=== PATIENT | female | born 1995 | race Caucasian/White ===

== ENCOUNTER → 2016-02-12 | Outpatient (CLI) | payer OTHER ==
[~2016-02-12] MED LIST: ACET-1256 PO; DESM0.1T8 PO; GADAVIST IV PRN; HYD10 PO; IBUP-1050 PO; OMEP20TA PO; ONDA4TAB10 SL; OPTIRAY 320 IV PRN; OSEL75CA12 PO; OXYC1TAB3 PO; SULF800T23 PO; UNKNOWN ANTIBIOTIC PO
--- NOTE | 2016-02-12 13:30 | DIAGNOSTIC IMAGING REPORT ---
CT SCAN OF THE NECK WITH IV CONTRAST CLINICAL HISTORY: Palpable lump in the posterior neck at the base of the skull. COMPARISON STUDY: CT scan of cervical spine dated 09/29/2015. TECHNIQUE: Following the IV administration of 119 cc of Optiray 320, CT scan of the soft tissues of the neck was performed from the skull base to the upper chest. Images are reviewed in the axial, sagittal, and coronal planes. IV contrast was administered without complication. CT DOSE: 235.60 mGy.cm FINDINGS: Soft tissues: A cutaneous marker has been placed over the left posterior neck at the level of C2. There is no mass or fluid collection at this site. A tiny venous varix is incidentally noted deep to the marker. This was also seen on 09/29/[address] Pharynx: The nasopharynx, oropharynx, and laryngeal pharynx are normal in appearance. The pharyngeal airway is widely patent. There is no evidence of mass lesion. The vocal cords are symmetric. The parapharyngeal fat is well maintained. The prevertebral/retropharyngeal soft tissues are within normal limits. The epiglottis is normal. Lymphadenopathy: No cervical lymphadenopathy is seen Thyroid: Normal in size and attenuation. Salivary glands: The parotid and submandibular glands are within normal limits. Brain parenchyma: The visualized brain parenchyma at the skull base is normal in appearance. Vascular structures: The carotid arteries and jugular veins are widely patent. Skeletal structures: Imaged portions of the calvarium at the skull base are within normal limits. The cervical spine appears intact. Orbits: The bony orbits are intact. Orbital contents are within normal limits. Sinuses and mastoids: The visualized paranasal sinuses are clear. The mastoid air cells are well pneumatized. Lung apices: Visualized apical lung parenchyma is clear. IMPRESSION: 1. No acute abnormality. 2. There is no concerning mass lesion or fluid collection identified in the left posterior neck at the site of interest. A tiny venous varix is incidentally noted deep to the marker and may correspond to the finding of palpable concern. This is of doubtful significance and was also present on the 09/29/[address] Electronically signed by: Clayton Austin M.D. 02/12/2016 1:28 PM
--- NOTE | 2016-02-12 15:26 | DIAGNOSTIC IMAGING REPORT ---
MRI OF THE PITUITARY GLAND COMBO CLINICAL HISTORY: Follow-up pituitary nodule. COMPARISON STUDY: MRI of the pituitary gland dated 11/03/2012. TECHNIQUE: MRI of the pituitary gland is performed using various T1 and T2-weighted sequences in the axial, sagittal, and coronal planes. Dynamic post contrast imaging is performed coronally following the IV administration of 5 cc of Gadavist. FINDINGS: Again seen is a T1 hypointense, T2 hypointense, and hypoenhancing round nodule which deforms the superior margin of the pituitary gland. This is located just to the left of midline and measures 7 x 7 x 6 mm. This has modestly increased in size from 2013 when it measured 6 x 6 x 4.5 mm. The infundibulum appears midline. The remaining brain parenchyma is normal as visualized. IMPRESSION: There is been a slight increase in size of a round pituitary nodule as compared to the 2013 examination as detailed above. The T is remains most typical for a pituitary microadenoma. Electronically signed by: Clayton Austin M.D. 02/12/2016 3:24 PM
== END | disposition home or self-care (01) ==
LOC: C.MRI 12:58
PROVIDERS: ATTEND Internal Medicine
DX: R22.1 Localized swelling, mass and lump, neck (principal); D35.2 Benign neoplasm of pituitary gland

== ENCOUNTER 2016-02-25 22:03 | Emergency (ER) | payer OTHER ==
[~2016-02-25] VITALS: Ht 157.5 cm; Wt 47.0 kg
[~2016-02-25 22:03] MED LIST changes: -ACET-1256 PO; -DESM0.1T8 PO; -GADAVIST IV PRN; -HYD10 PO; -IBUP-1050 PO; -OMEP20TA PO; -OPTIRAY 320 IV PRN; -OSEL75CA12 PO; -OXYC1TAB3 PO; -SULF800T23 PO; -UNKNOWN ANTIBIOTIC PO
[2016-02-25 22:08] VITALS: BP 98/57; PULSE 105; TEMP 37.1; Ht 157.5 cm; Wt 47.0 kg
[2016-02-25 23:05] VITALS: O2SAT 99
--- NOTE | 2016-02-26 01:02 | EMERGENCY ROOM VISIT NOTE ---
ED Visit Note First contact with patient: 22:25 CHIEF COMPLAINT: Finger laceration HISTORY OF PRESENT ILLNESS: This 21 year old female patient presents to the emergency department after cutting the right third finger after punching a mirror just prior to arrival. The bleeding has stopped. Denies weakness or numbness of the finger. The patient has full range of motion of the fingers. The patient rates the pain as sharp and 7/10. The patient denies any other injuries. The patient's tetanus shot is reportedly up to date. REVIEW OF SYSTEMS: A 6 system review of systems was completed with positives and pertinent negatives listed in the HPI. ALLERGIES: Serotonin MEDICATIONS: See EMR PMH: No pertinent chronic medical disease SOCIAL HISTORY: Lives locally PHYSICAL EXAM: Vital Signs: Reviewed Nurse's notes, vital signs stable. GENERAL : White female, in no acute distress, well developed, well nourished. SKIN: There is a 1.0 cm long laceration on the posterior proximal aspect of the right third finger. The edges do not gape apart with traction. There is no foreign material in the wound and it looks clean. There is no significant bleeding. Extension and flexion of the finger is full and strong. Full range of motion of the wrist and other fingers. Capillary refill less than 2 seconds. Normal sensation to light and sharp touch. EMERGENCY DEPARTMENT COURSE: I examined the patient. She appears to have suffered a superficial laceration over her right third finger. The wound was cleansed with Betadine, and does not appear to need suture repair. The wound will do much better with Dermabond, and this was placed. The patient tolerated this well. She was given a metal splint to help prevent flexion. Wound care instructions were discussed, and she was otherwise invited back to the ER with any new, worsening, or concerning symptoms. Problem List Medical Problems: (1) Abdominal pain Status: Resolved (2) Contusion of left thumb Status: Resolved (3) Cough Status: Resolved (4) Epigastric pain Status: Resolved (5) Gastritis Status: Resolved (6) Headache Status: Chronic (7) Headache Status: Resolved (8) Headache Status: Resolved (9) Intractable migraine Status: Chronic (10) Intractable migraine Status: Chronic (11) Left shoulder pain Status: Resolved (12) Low back pain Status: Resolved (13) Microadenoma Status: Chronic (14) Migraine Status: Chronic (15) Migraine Status: Chronic (16) Migraine Status: Chronic (17) Migraine Status: Chronic (18) Migraine Status: Chronic (19) Post concussion syndrome Status: Chronic Current/Historical Medications No Active Prescriptions or Reported Meds Allergies Coded Allergies: Serotonin (Verified Allergy, Unknown, HIVES, UNCONTROLLED MOVEMENTS, ) Vital Signs Date Time Temp Pulse Resp B/P Pulse Ox O2 Delivery O2 Flow Rate FiO2 02/25/16 23:05 99 02/25/16 22:08 37.1 105 18 98/57 98 Room Air Departure Information Impression Primary Impression: Finger laceration Dispostion Home / Self-Care Condition GOOD Prescriptions No Active Prescriptions or Reported Meds Referrals Quin Montenegro M.D. No Doctor, Assigned (PCP) Forms HOME CARE DOCUMENTATION FORM, IMPORTANT VISIT INFORMATION Patient Instructions My [facility], ED Laceration Small Superf No Sutr Additional Instructions You were seen and evaluated today on an emergency basis only. This is not a substitute for, or an effort to provide, complete comprehensive medical care. It is not possible to recognize and treat all injuries or illnesses in a single emergency department visit. For this reason it is recommended that you followup with your primary care physician with any ongoing or persistent symptoms. Wear your splint for the next 3-4 days. Try not to get the Dermabond wet. This is a skin glue that will fall off by itself over the next few days. Try not to flex your finger as this may cause the glue to fall off prematurely. You are welcome to return to the emergency department anytime with new, worsening, or concerning symptoms.
[2016-06-10] MEDS ORDERED: HYD10 PO (16:05)
[2016-06-10] MEDS ORDERED: OXYC1TAB3 PO (18:16)
[2016-08-16] MEDS ORDERED: DESM0.1T8 PO (16:05)
[2016-08-16] MEDS ORDERED: HYD10 PO (16:05)
== END 2016-02-25 23:08 | disposition home or self-care (01) ==
LOC: C.EDB 22:04 → C.EDD 23:08
DX: S61.212A Laceration without foreign body of right middle finger without damage to nail, initial encounter (principal); W22.8XXA Striking against or struck by other objects, initial encounter

== ENCOUNTER 2016-05-01 14:58 | Emergency (ER) | payer OTHER ==
[~2016-05-01] VITALS: Ht 157.5 cm; Wt 47.1 kg
[2016-05-01 15:04] VITALS: TEMP 36.9; Ht 157.5 cm; Wt 47.1 kg
[2016-05-01] MEDS ORDERED: MoRPHine SULFATE 10 MG/ML CARP/VIAL IM STA (15:32)
[2016-05-01] MEDS ORDERED: ONDANSETRON 4MG OD TAB PO STA (15:32)
--- NOTE | 2016-05-01 16:04 | EMERGENCY ROOM VISIT NOTE ---
History Report prepared by Abelino: Suzanne Vital Under the Supervision of: Dr. Clayton Nguyen M.D. First contact with patient: 15:27 Chief Complaint: ABDOMINAL PAIN Stated Complaint: BAD PERIOD CRAMPS, HEADACHE, NAUSEA History of Present Illness The patient is a 21 year old female who presents to the Emergency Room with complaints of persistent lower abdominal cramping that began this morning. The pain radiates through her back. The patient states that she got her menstrual period today and her current pain feels like the worst menstrual cramps she has ever had. She was due for her period today. She does typically get cramps with her period, but never this bad. She also complains of nausea. Her vaginal bleeding has been normal otherwise. She has had more frequent bowel movements today. Denies vomiting, diarrhea, urinary symptoms or other complaints. The patient believes she has a history of an ovarian cyst. There is no chance of . She tried taking Tylenol today without relief. She is scheduled for surgery next week to remove a mass on her pituitary gland and cannot take NSAIDs. Source of History: patient Onset: this morning Position: abdomen (lower) Timing: other (persistent) Associated Symptoms: + nausea, No diarrhea, No urinary symptoms, No vomiting Review of Systems See HPI for pertinent positives & negatives. A total of 10 systems reviewed and were otherwise negative. Past Medical & Surgical Medical Problems: (1) Abdominal pain (2) Contusion of left thumb (3) Cough (4) Epigastric pain (5) Gastritis (6) Headache (7) Headache (8) Headache (9) Intractable migraine (10) Intractable migraine (11) Left shoulder pain (12) Low back pain (13) Microadenoma (14) Migraine (15) Migraine (16) Migraine (17) Migraine (18) Migraine (19) Post concussion syndrome (20) Tobacco Use Disorder Family History Diabetes mellitus Social History Smoking Status: Current Every Day Smoker Alcohol Use: none Drug Use: none Marital Status: single Housing Status: lives with family Occupation Status: employed Current/Historical Medications Scheduled PRN Oxycodone Ir (Roxicodone Ir), 1-2 TAB PO Q4H PRN for Pain Allergies Coded Allergies: Serotonin (Verified Allergy, Unknown, HIVES, UNCONTROLLED MOVEMENTS, ) Physical Exam Vital Signs Date Time Temp Pulse Resp B/P Pulse Ox O2 Delivery O2 Flow Rate FiO2 05/01/16 17:08 74 16 110/69 99 05/01/16 15:04 36.9 90 15 103/69 98 Room Air Physical Exam GENERAL: Patient is in no acute distress. HEENT: No acute trauma, normocephalic atraumatic, mucous membranes moist, no nasal congestion, no scleral icterus. NECK: No stridor, no adenopathy, no meningismus, trachea is midline. LUNGS: Clear to auscultation bilaterally, no wheeze, no rhonchi, breath sounds equal. HEART: Without murmurs gallops or rubs, regular rate and rhythm. ABDOMEN: Soft, mildly tender to the lower pelvis bilaterally, bowel sounds positive, no hernias, no peritonitis. EXTREMITIES: No cyanosis or edema, full range of motion of all the joints without pain or difficulty, no signs for acute trauma. NEUROLOGIC: Oriented x 3, no acute motor or sensory deficits, no focal weakness. SKIN: No rash, no jaundice, no diaphoresis. Medical Decision & Procedures Medications Administered Medications (Trade) Dose Ordered Sig/Alexia Route Start Time Stop Time Status Last Admin Dose Admin Morphine Sulfate (MoRPHine SULFATE INJ) 6 mg NOW STAT IM 05/01/16 15:32 05/01/16 15:34 DC 05/01/16 15:58 6 MG Ondansetron HCl (Zofran Odt) 4 mg NOW STAT PO 05/01/16 15:32 05/01/16 15:34 DC 05/01/16 15:58 4 MG ED Course 1528: The patient was evaluated in room A11B. A complete history and physical exam was performed. 1532: Ordered Zofran Odt 4 mg PO, Morphine Sulfate 6 mg IM. 1613: I reassessed the patient and updated her. 1650: Reevaluated the patient. She was feeling much better. Discussed results and discharge instructions: She verbalized understanding and agreement. The patient is ready for discharge. Medical Decision Differential includes but is not limited to severe menstrual cramping, ovarian cyst, intestinal colic, UTI. The patient presents with severe menstrual cramping. She has had some painful periods before but nothing to this extent. She has been using Tylenol without relief. She has some nausea but no vomiting was reported. She hasn't had urinary complaints. She is homosexual and thus is not concerned for . The patient cannot use any type NSAID since she is scheduled next week for surgery on her pituitary. I talked to the patient at length. Really, she just wants some pain control. She was given IM morphine and oral Zofran. She feels improved. She'll be discharged with a few oxycodone for pain. She can continue the Tylenol as well. If things are worsening, if she has fever, she should return back for reassessment. I did discuss an ultrasound of her uterus and ovaries, she would like to hold on this testing for now. [place] Drug Monitoring Program Search Results: patient reviewed within database, no issues identified Impression Primary Impression: Pelvic cramping Additional Impression: Vaginal bleeding Scribe Attestation The scribe's documentation has been prepared under my direction and personally reviewed by me in its entirety. I confirm that the note above accurately reflects all work, treatment, procedures, and medical decision making performed by me. Departure Information Dispostion Home / Self-Care Prescriptions Oxycodone Ir (Roxicodone Ir) 5 Mg Tab 1-2 TAB PO Q4H Y for Pain, #10 TAB Prov: Clayton Nguyen M.D. 05/01/16 Referrals Quin Montenegro M.D. (PCP) Patient Instructions My [facility] Additional Instructions tylenol for pain heat the belly may help oxy ir 1-2 tab every 4 hours for severe pain return if worsening as we discussed Problem Qualifiers
[2016-05-01] MEDS ORDERED: OXYC1TAB3 PO (16:57)
[2016-05-01 17:08] VITALS: BP 110/69; PULSE 74; O2SAT 99
[2016-06-10] MEDS ORDERED: HYD10 PO (16:05)
[2016-06-10] MEDS ORDERED: OXYC1TAB3 PO (18:16)
[2016-08-16] MEDS ORDERED: HYD10 PO (16:05)
[2016-08-16] MEDS ORDERED: DESM0.1T8 PO (16:05)
== END 2016-05-01 17:11 | disposition home or self-care (01) ==
LOC: C.EDB 14:59 → C.EDA 17:11
DX: N94.6 Dysmenorrhea, unspecified (principal); E23.6 Other disorders of pituitary gland; F17.200 Nicotine dependence, unspecified, uncomplicated; R11.0 Nausea

== ENCOUNTER 2016-05-26 18:55 | Emergency (ER) | payer OTHER ==
[~2016-05-26] VITALS: Ht 157.5 cm; Wt 47.8 kg
[~2016-05-26 18:55] MED LIST changes: -ONDA4TAB10 SL; +OXYC1TAB3 PO
[2016-05-26 18:58] VITALS: TEMP 36.8; Ht 157.5 cm; Wt 47.8 kg
[2016-05-26] MEDS ORDERED: DiphenhydrAMINE HCL 50 MG/ML VIAL IV STA (19:11)
[2016-05-26] MEDS ORDERED: KETOROLAC TROMETHAMINE 30 MG/ML VIAL IV STA (19:11)
[2016-05-26] MEDS ORDERED: SODIUM CHLORIDE 0.9% 1000ML 1,000 ML IV STA (19:11)
[2016-05-26] MEDS ORDERED: PROCHLORPERAZINE 5 MG/ML 2 ML VIAL IV STA (19:11)
--- NOTE | 2016-05-26 19:15 | EMERGENCY ROOM VISIT NOTE ---
History Report prepared by Abelino: Maco Schwarz Under the Supervision of: Dr. River Diop M.D. First contact with patient: 19:02 Chief Complaint: HEADACHE Stated Complaint: MIRGRAINE History of Present Illness The patient is a 21 year old female who presents to the Emergency Room with complaints of persistent migraines that she has been experiencing daily since May 06, 20 days prior to arrival. The patient states that she had a tumor removed from her anterior pituitary gland on May 06 and has the migraines daily every since. She notes that her migraine pain starts on the sides of her nose and radiates up into and across her forehead. She denies any neck stiffness or soreness at this time. The patient's surgery was done in [place]. Source of History: patient Onset: 20 days [employer] WORK[employer] Position: head Quality: other (Migraine Headache) Timing: other (Persistent) Review of Systems See HPI for pertinent positives & negatives. A total of 10 systems reviewed and were otherwise negative. Past Medical & Surgical Medical Problems: (1) Abdominal pain (2) Contusion of left thumb (3) Cough (4) Epigastric pain (5) Gastritis (6) Headache (7) Headache (8) Headache (9) Intractable migraine (10) Intractable migraine (11) Left shoulder pain (12) Low back pain (13) Microadenoma (14) Migraine (15) Migraine (16) Migraine (17) Migraine (18) Migraine (19) Post concussion syndrome (20) Tobacco Use Disorder Family History Diabetes mellitus Social History Smoking Status: Current Every Day Smoker Alcohol Use: none Drug Use: none Marital Status: single Housing Status: lives with family Occupation Status: employed Current/Historical Medications Scheduled [Unknown Antibiotic], 1 TAB PO UD Scheduled PRN Oxycodone Immediate Rel Tab (Roxicodone Ir), 1-2 TAB PO Q4H PRN for Severe Pain Oxycodone Ir (Roxicodone Ir), 1-2 TAB PO Q4H PRN for Pain Allergies Coded Allergies: Serotonin (Verified Allergy, Unknown, HIVES, UNCONTROLLED MOVEMENTS, ) Physical Exam Vital Signs Date Time Temp Pulse Resp B/P Pulse Ox O2 Delivery O2 Flow Rate FiO2 05/26/16 20:48 79 16 101/63 98 Room Air 05/26/16 19:27 95 16 97/60 99 Room Air 05/26/16 18:58 36.8 101 18 105/64 92 Room Air Physical Exam GENERAL: Patient is a healthy-appearing well-nourished. No evidence of meningitis encephalitis on exam. HEAD: Normocephalic atraumatic EYES: Ocular movements intact pupils equal and react to light OROPHARYNX mucous membranes are moist no exudates present no erythema or edema present NECK: Supple no nuchal rigidity. No evidence of meningitis encephalitis on exam CHEST: Good equal expansion LUNGS: Clear and equal to auscultation CARDIAC: Normal S1 and S2 ABDOMEN: Soft nontender no guarding BACK: No CVA tenderness EXTREMITIES: No pain upon palpation normal muscle strength in all groups no clubbing cyanosis or edema NEURO: Patient is following commands is answering questions appropriately. Alert and oriented x3 Cranial Nerves 2-12 grossly intact Medical Decision & Procedures Medications Administered Medications (Trade) Dose Ordered Sig/Alexia Route Start Time Stop Time Status Last Admin Dose Admin Sodium Chloride (Nss 1000ml) 1,000 ml @ 999 mls/hr Q1H1M STAT IV 05/26/16 19:11 05/26/16 20:11 DC 05/26/16 19:17 999 MLS/HR Hydromorphone HCl (Dilaudid Inj) 1 mg NOW STAT IV 05/26/16 19:21 05/26/16 19:22 DC 05/26/16 19:26 1 MG Ondansetron HCl (Zofran Inj) 4 mg NOW STAT IV 05/26/16 19:21 05/26/16 19:22 DC 05/26/16 19:25 4 MG Hydromorphone HCl (Dilaudid Inj) 1 mg NOW STAT IV 05/26/16 20:16 05/26/16 20:18 DC 05/26/16 20:33 1 MG Oxycodone HCl (Roxicodone Immediate Rel 5MG Home Pack) 1 homepack UD ONCE PO 05/26/16 20:30 05/26/16 20:31 DC 05/26/16 20:33 1 HOMEPACK ED Course 1900: Past medical records reviewed. The patient was evaluated in room C1. A complete history and physical examination was performed. 1910: Ordered Compazine 10 mg IV, Toradol 30 mg IV, Benadryl 50 mg IV, Sodium Chloride 1000 mL @ 999 mL/hr IV. 1920: Ordered Zofran 4 mg IV, Dilaudid 1 mg IV. 2016: Dilaudid 1 mg IV. 2019: Upon reexamination the patient is much improved. I discussed results and treatment plan with the patient. She verbalizes agreement and understanding. The patient is ready for discharge. Medical Decision Differential diagnosis: Etiologies such as migraine headache, meningitis, sinusitis, CO exposure, ICH, SAH, infection, tumor, headache, sinus thrombosis, arterial dissection, as well as others were entertained. This is a 21-year-old female who presents emergency department complaining of sinus pressure and pain. The patient has a follow-up with her neurosurgeon and [place] tomorrow. She has no evidence of meningitis or encephalitis here in the emergency department. Based on this finding I believe the patient's pain can be treated. The patient refused Toradol Compazine and Benadryl therefore she was given Dilaudid and Zofran. Repeat examination revealed improvement patient's symptoms. I stressed the need for follow-up with the patient's surgeon tomorrow. Patient was in agreement with the treatment plan. Impression Primary Impression: Headache Scribe Attestation The scribe's documentation has been prepared under my direction and personally reviewed by me in its entirety. I confirm that the note above accurately reflects all work, treatment, procedures, and medical decision making performed by me. Departure Information Dispostion Home / Self-Care Prescriptions Oxycodone Immediate Rel Tab (ROXICODONE IR) 5 Mg Tab 1-2 TAB PO Q4H Y for Severe Pain, #14 TAB Prov: River Diop MD 05/26/16 Referrals Quin Montenegro M.D. (PCP) Forms HOME CARE DOCUMENTATION FORM, IMPORTANT VISIT INFORMATION Patient Instructions My [facility] Additional Instructions Need follow up with Neurosurgeon tomorrow You have been examined and treated today on an emergency basis only. This is not a substitute for, or an effort to provide, complete comprehensive medical care. It is impossible to recognize and treat all injuries or illnesses in a single emergency department visit. It is therefore important that you follow up closely with Dr Montenegro. Call as soon as possible for an appointment. Thank you for your time and consideration. I look forward to speaking with you again soon. Please don't hesitate to call us if you have any questions. Problem Qualifiers Primary Impression: Headache Headache type: unspecified Headache chronicity pattern: acute headache Intractability: not intractable Qualified Codes: R51 - Headache
[2016-05-26] MEDS ORDERED: HYDROmorphone INJ 1 MG/ML SYR IV STA ×2 (19:21→20:16)
[2016-05-26] MEDS ORDERED: ONDANSETRON INJ 2 MG/ML 2 ML VIAL IV STA (19:21)
[2016-05-26] MEDS ORDERED: UNKNOWN ANTIBIOTIC PO (19:27)
[2016-05-26] MEDS ORDERED: OXYC1TAB3 PO (20:19)
[2016-05-26] MEDS ORDERED: OXYCODONE IR HOME PACK PO ONE (20:30)
[2016-05-26 20:48] VITALS: BP 101/63; PULSE 79; O2SAT 98
[2016-06-10] MEDS ORDERED: HYD10 PO (16:05)
[2016-06-10] MEDS ORDERED: OXYC1TAB3 PO (18:16)
[2016-08-16] MEDS ORDERED: DESM0.1T8 PO (16:05)
[2016-08-16] MEDS ORDERED: HYD10 PO (16:05)
== END 2016-05-26 20:50 | disposition home or self-care (01) ==
LOC: C.EDB 18:56 → C.EDC 20:50
DX: R51 Headache (principal); F17.200 Nicotine dependence, unspecified, uncomplicated; Z87.820 Personal history of traumatic brain injury; Z86.19 Personal history of other infectious and parasitic diseases; Z88.8 Allergy status to other drugs, medicaments and biological substances; Z83.3 Family history of diabetes mellitus

== ENCOUNTER 2016-06-07 14:39 | Emergency (ER) | payer OTHER ==
[~2016-06-07] VITALS: Ht 157.5 cm; Wt 48.4 kg
[~2016-06-07 14:39] MED LIST changes: +UNKNOWN ANTIBIOTIC PO
[2016-06-07 15:15] VITALS: TEMP 37; Ht 157.5 cm; Wt 48.4 kg
[2016-06-07] MEDS ORDERED: OMEP20TA PO (16:05)
[2016-06-07] MEDS ORDERED: MoRPHine SULFATE 4 MG/ML 1 ML CARP\\VIAL IV STA ×2 (16:14→17:56)
[2016-06-07] MEDS ORDERED: SODIUM CHLORIDE 0.9% 1000ML 1,000 ML IV STA (16:14)
[2016-06-07 16:29] LABS: BASO % 0.1 %; BASO ABS # 0.02 K/uL (0-0.2); COMPLETE YES; EOS % 0.1 %; HEMATOCRIT 38.3 % (37-47); IG% 0.3 %; LYMPH % 14.4 %; LYMPH ABS # 2.36 K/uL (1.2-3.4); MEAN CELL VOLUME 94.8 fL (80-100); MEAN CORPUSCULAR HEMOGLOBIN 31.9 pg (25-34); MEAN CORPUSCULAR HGB CONC 33.7 g/dl (32-36); MEAN PLATELET VOLUME 9.8 fL (7.4-10.4); MONO % 2.9 %; NEUT % 82.2 %; PLATELET COUNT 230 K/uL (130-400); RED BLOOD COUNT 4.04 M/uL (4.2-5.4); WHITE BLOOD COUNT 16.41 K/uL (4.8-10.8)
[2016-06-07 16:46] LABS: ALT/SGPT 60 U/L (12-78); AST/SGOT 17 U/L (15-37); BLOOD UREA NITROGEN 7 mg/dl (7-18); BUN/CREATININE RATIO 8.3 (10-20); CALCIUM 9.1 mg/dl (8.5-10.1); CARBON DIOXIDE 30 mmol/L (21-32); CHLORIDE 110 mmol/L (98-107); CREATININE 0.87 mg/dl (0.60-1.20); GLUCOSE 88 mg/dl (70-99); POTASSIUM 3.9 mmol/L (3.5-5.1); SODIUM 143 mmol/L (136-145)
[2016-06-07 16:49] LABS: ALKALINE PHOSPHATASE 86 U/L (45-117)
[2016-06-07 16:57] LABS: URINE APPEARANCE CLEAR (CLEAR); URINE BILIRUBIN NEG (NEG); URINE COLOR YELLOW; URINE EPITHELIAL CELL AUTO 20-30 /lpf (0-5); URINE NITRITE NEG (NEG); URINE PH 7.5 (4.5-7.5); URINE SPECIFIC GRAVITY 1.007 (1.000-1.030); UROBILINOGEN NEG (NEG); ZZUR CULT IF INDIC CLEAN CATCH YES
[2016-06-07 16:58] LABS: MANUAL MICROSCOPIC REQUIRED? NO; REVIEW REQ? NO
--- NOTE | 2016-06-07 17:27 | DIAGNOSTIC IMAGING REPORT ---
CHEST ONE VIEW PORTABLE CLINICAL HISTORY: Cough. COMPARISON STUDY: Chest radiograph December 26, 2015. FINDINGS: Lung volumes are normal. There is no pneumothorax or pleural effusion. Cardiac size is normal. Mediastinal contours are normal. There is no consolidation to suggest pneumonia. Pulmonary vascularity is normal. IMPRESSION: No acute cardiopulmonary findings. Electronically signed by: Selvin Montenegro M.D. 06/07/2016 5:26 PM Dictated Date/Time: 06/07/2016 5:25 PM
--- NOTE | 2016-06-07 17:36 | DIAGNOSTIC IMAGING REPORT ---
CT OF THE ABDOMEN AND PELVIS WITHOUT CONTRAST CLINICAL HISTORY: Left flank pain and hematuria. COMPARISON STUDY: CT of the abdomen and pelvis October 10, 2015 and abdominal series December 26, 2015. TECHNIQUE: Axial images of the abdomen and pelvis were obtained without IV contrast. Images were reviewed in the axial, sagittal, and coronal planes. FINDINGS: Lung bases are clear. There is slight prominence of both collecting systems without hydronephrosis. This could be related to bladder distention. No renal, ureteral or bladder calculi are present. Evaluation of the remainder of the abdomen and pelvis is suboptimal on this unenhanced exam. The liver, spleen, adrenal glands and pancreas are unremarkable. There is no evidence for a bowel obstruction. The appendix is partially disturbed likely normal. There is no ascites. There is no lymphadenopathy on this unenhanced exam. Skeletal structures are unremarkable. IMPRESSION: 1. No urinary calculi. Slight prominence of both collecting systems without hydronephrosis. This may be related to bladder distention. 2. No acute process within the abdomen or pelvis on unenhanced exam. Electronically signed by: Selvin Montenegro M.D. 06/07/2016 5:35 PM Dictated Date/Time: 06/07/2016 5:32 PM
[2016-06-07 17:45] LABS: URINE APPEARANCE CLEAR (CLEAR); URINE BILIRUBIN NEG (NEG); URINE COLOR YELLOW; URINE EPITHELIAL CELL AUTO >30 /lpf (0-5); URINE NITRITE NEG (NEG); URINE PH 7.5 (4.5-7.5); URINE SPECIFIC GRAVITY 1.003 (1.000-1.030); UROBILINOGEN NEG (NEG); ZZURINE CULT IF INDIC CATH NO
[2016-06-07 17:47] LABS: MANUAL MICROSCOPIC REQUIRED? NO; REVIEW REQ? YES
[2016-06-07] MEDS ORDERED: SULFAMETHOXAZOLE/TRIMETHOPRIM DS 800/160MG TAB PO STA (18:36)
[2016-06-07] MEDS ORDERED: SULF800T23 PO (18:51)
[2016-06-07 19:08] VITALS: BP 125/66; PULSE 80; O2SAT 99
--- NOTE | 2016-06-07 22:53 | EMERGENCY ROOM VISIT NOTE ---
History Report prepared by Abelino: Mariela Houser Under the Supervision of: Dr. Idris Mathis D.O. First contact with patient: 16:03 Chief Complaint: URINARY SYMPTOMS Stated Complaint: PEEING BLOOD - LOWER BACK APIN - MIGRAINE Nursing Triage Summary: Pt reports hematuria and left flank pain since yesterday Painful urination History of Present Illness The patient is a 21 year old female who presents to the Emergency Room with complaints of persistent hematuria starting 2 days [employer]. The patient states that along with her hematuria she has been experiencing back pain with it worse on the left than the right. The patient states that that pain radiates down into her hip and leg on the left side. The patient states that her hematuria seems like she has her menstrual period because when she wipes after urinating there is blood on the toilet paper. She states that her last menstrual period was normal and ended about 4 days ago. The patient states that she also has some pain once she is done urinating with her hematuria. The patient states that she had surgery on her pituitary on May 06 and was also diagnosed with diabetes insipidus on that day. She states that she has an incision from the surgery on her lower left side and states that she has been seen by her surgeon for a follow up. She states that also after her surgery she has had a headache. The patient states that she has a history of kidney stones in the past but states that with the kidney stones she usually has nausea and vomiting but has not experienced that recently. The patient states that she was seen at her PCP yesterday for a viral respiratory infection due to a recent productive cough with green phlegm, runny nose, and sore throat. She states she was prescribed a Zpac that she was going to start today. The patient denies any diarrhea, vaginal discharge, vaginal bleeding, fever, weakness or numbness in extremities. Source of History: patient Onset: 2 days [employer] SU[employer] Position: other (urinary) Timing: other (persistent) Associated Symptoms: + back pain (left worse than right, radiates down to buttock), + cough (green phlegm), + headache, + sorethroat, No fevers, No nausea , No numbness, No vomiting, No weakness Note: Associated symptoms: pain after urination, runny nose. Patient denies vaginal discharge and vaginal bleeding. Review of Systems Pt denies change in vision, fevers, chest pain, shortness of breath, nausea, vomiting, diarrhea, and melena. Past Medical & Surgical Medical Problems: (1) Abdominal pain (2) Contusion of left thumb (3) Cough (4) Epigastric pain (5) Gastritis (6) Headache (7) Headache (8) Headache (9) Intractable migraine (10) Intractable migraine (11) Left shoulder pain (12) Low back pain (13) Microadenoma (14) Migraine (15) Migraine (16) Migraine (17) Migraine (18) Migraine (19) Post concussion syndrome (20) Tobacco Use Disorder Family History Diabetes mellitus Social History Smoking Status: Current Every Day Smoker Alcohol Use: none Drug Use: none Marital Status: single Housing Status: lives with family Occupation Status: employed Current/Historical Medications Scheduled Desmopressin Acetate (Desmopressin Acetate), 0.1 MG PO Q12 Hydrocortisone (Cortef), 20 MG PO QAM Hydrocortisone (Cortef), 10 MG PO QPM Omeprazole (Omeprazole), 20 MG PO DAILY Sulfamethoxazole-Trimethoprim (Bactrim Ds 800MG/160MG), 1 TAB PO BID Allergies Coded Allergies: Ketorolac Tromethamine (Unverified Allergy, Unknown, SEIZURE, 06/07/16) Prochlorperazine (Unverified Allergy, Unknown, SEIZURE, 06/07/16) Serotonin (Verified Allergy, Unknown, HIVES, UNCONTROLLED MOVEMENTS, ) Tramadol (Unverified Allergy, Unknown, SEIZURE, 06/07/16) Physical Exam Vital Signs Date Time Temp Pulse Resp B/P Pulse Ox O2 Delivery O2 Flow Rate FiO2 06/07/16 19:08 80 16 125/66 99 06/07/16 16:28 61 16 113/62 100 Room Air 06/07/16 15:15 37.0 81 18 93/57 99 Room Air Physical Exam GENERAL: Sitting up in bed, alert, well appearing, well nourished, no distress, non-toxic EYE EXAM: normal conjunctiva OROPHARYNX: no exudate, no erythema, lips, buccal mucosa, and tongue normal and mucous membranes are moist NECK: supple, no nuchal rigidity, no adenopathy, non-tender LUNGS: Clear to auscultation. Normal chest wall mechanics HEART: no murmurs, S1 normal and S2 normal ABDOMEN: Linear incision left lower quadrant just medial to ASIS. Minimal tenderness around the incision site. No rebound or guarding. positive bowel sounds BACK: mild acute produceable tenderness in the left flank tracking down to left buttock. SKIN: Dry and intact UPPER EXTREMITIES: upper extremities are grossly normal. LOWER EXTREMITIES: No pitting edema. NEURO EXAM: Cranial nerves II-12 grossly intact, no gross weakness of the upper or lower extremities Medical Decision & Procedures ER Provider Diagnostic Interpretation: Radiology results as stated below per my review and the radiologist's interpretation: XRAY:Chest: A one view study was reviewed, no fracture was seen. CHEST ONE VIEW PORTABLE CLINICAL HISTORY: Cough. COMPARISON STUDY: Chest radiograph December 26, 2015. FINDINGS: Lung volumes are normal. There is no pneumothorax or pleural effusion. Cardiac size is normal. Mediastinal contours are normal. There is no consolidation to suggest pneumonia. Pulmonary vascularity is normal. IMPRESSION: No acute cardiopulmonary findings. Electronically signed by: Selvin Montenegro M.D. 06/07/2016 5:26 PM Dictated Date/Time: 06/07/2016 5:[address]:Per my review, radiologist interpretation. CT OF THE ABDOMEN AND PELVIS WITHOUT CONTRAST CLINICAL HISTORY: Left flank pain and hematuria. COMPARISON STUDY: CT of the abdomen and pelvis October 10, 2015 and abdominal series December 26, 2015. TECHNIQUE: Axial images of the abdomen and pelvis were obtained without IV contrast. Images were reviewed in the axial, sagittal, and coronal planes. FINDINGS: Lung bases are clear. There is slight prominence of both collecting systems without hydronephrosis. This could be related to bladder distention. No renal, ureteral or bladder calculi are present. Evaluation of the remainder of the abdomen and pelvis is suboptimal on this unenhanced exam. The liver, spleen, adrenal glands and pancreas are unremarkable. There is no evidence for a bowel obstruction. The appendix is partially disturbed likely normal. There is no ascites. There is no lymphadenopathy on this unenhanced exam. Skeletal structures are unremarkable. IMPRESSION: 1. No urinary calculi. Slight prominence of both collecting systems without hydronephrosis. This may be related to bladder distention. 2. No acute process within the abdomen or pelvis on unenhanced exam. Electronically signed by: Selvin Montenegro M.D. 06/07/2016 5:35 PM Dictated Date/Time: 06/07/2016 5:32 PM Laboratory Results 06/07/16 16:18 Red Blood Count 4.04, Mean Corpuscular Volume 94.8, Mean Corpuscular Hemoglobin 31.9, Mean Corpuscular Hemoglobin Concent 33.7, Mean Platelet Volume 9.8, Neutrophils (%) (Auto) 82.2, Lymphocytes (%) (Auto) 14.4, Monocytes (%) (Auto) 2.9, Eosinophils (%) (Auto) 0.1, Basophils (%) (Auto) 0.1, Neutrophils # (Auto) 13.49, Lymphocytes # (Auto) 2.36, Monocytes # (Auto) 0.47, Eosinophils # (Auto) 0.02, Basophils # (Auto) 0.02 06/07/16 16:18 Test 06/07/16 16:00 06/07/16 16:18 06/07/16 17:20 Urine Test NEG (NEG) White Blood Count 16.41 K/uL (4.8-10.8) Red Blood Count 4.04 M/uL (4.2-5.4) Hemoglobin 12.9 g/dL (12.0-16.0) Hematocrit 38.3 % (37-47) Mean Corpuscular Volume 94.8 fL (80-100) Mean Corpuscular Hemoglobin 31.9 pg (25-34) Mean Corpuscular Hemoglobin Concent 33.7 g/dl (32-36) Platelet Count 230 K/uL (130-400) Mean Platelet Volume 9.8 fL (7.4-10.4) Neutrophils (%) (Auto) 82.2 % Lymphocytes (%) (Auto) 14.4 % Monocytes (%) (Auto) 2.9 % Eosinophils (%) (Auto) 0.1 % Basophils (%) (Auto) 0.1 % Neutrophils # (Auto) 13.49 K/uL (1.4-6.5) Lymphocytes # (Auto) 2.36 K/uL (1.2-3.4) Monocytes # (Auto) 0.47 K/uL (0.11-0.59) Eosinophils # (Auto) 0.02 K/uL (0-0.5) Basophils # (Auto) 0.02 K/uL (0-0.2) RDW Standard Deviation 46.1 fL (36.4-46.3) RDW Coefficient of Variation 13.1 % (11.5-14.5) Immature Granulocyte % (Auto) 0.3 % Immature Granulocyte # (Auto) 0.05 K/uL (0.00-0.02) Anion Gap 3.0 mmol/L (3-11) Est Creatinine Clear Calc Drug Dose 78.8 ml/min Estimated GFR () 111.1 Estimated GFR (Non- 95.9 BUN/Creatinine Ratio 8.3 (10-20) Calcium Level 9.1 mg/dl (8.5-10.1) Total Bilirubin 0.2 mg/dl (0.2-1) Direct Bilirubin < 0.1 mg/dl (0-0.2) Aspartate Amino Transf (AST/SGOT) 17 U/L (15-37) Alanine Aminotransferase (ALT/SGPT) 60 U/L (12-78) Alkaline Phosphatase 86 U/L (45-117) Total Protein 7.7 gm/dl (6.4-8.2) Albumin 4.1 gm/dl (3.4-5.0) Lipase 168 U/L (73-393) Urine Color YELLOW Urine Appearance CLEAR (CLEAR) Urine pH 7.5 (4.5-7.5) Urine Specific Hilbert 1.003 (1.000-1.030) Urine Protein NEG (NEG) Urine Glucose (UA) NEG (NEG) Urine Ketones NEG (NEG) Urine Occult Blood NEG (NEG) Urine Nitrite NEG (NEG) Urine Bilirubin NEG (NEG) Urine Urobilinogen NEG (NEG) Urine Leukocyte Esterase MODERATE (NEG) Urine WBC (Auto) 5-10 /hpf (0-5) Urine RBC (Auto) 0-4 /hpf (0-4) Urine Hyaline Casts (Auto) 1-5 /lpf (0-5) Urine Epithelial Cells (Auto) >30 /lpf (0-5) Urine Bacteria (Auto) NEG (NEG) Urine Renal Epithelial Cells 0-5 /lpf (0-5) Laboratory results per my review. Medications Administered Medications (Trade) Dose Ordered Sig/Alexia Route Start Time Stop Time Status Last Admin Dose Admin Sodium Chloride (Nss 1000ml) 1,000 ml @ 999 mls/hr Q1H1M STAT IV 06/07/16 16:14 06/07/16 17:14 DC 06/07/16 16:31 999 MLS/HR Morphine Sulfate (MoRPHine SULFATE INJ) 4 mg NOW STAT IV 06/07/16 16:14 06/07/16 16:16 DC 06/07/16 16:31 4 MG Morphine Sulfate (MoRPHine SULFATE INJ) 4 mg NOW STAT IV 06/07/16 17:56 06/07/16 17:57 DC 06/07/16 18:03 4 MG Trimethoprim/ Sulfamethoxazole (Septra Ds 800/ 160MG Tab) 1 tab NOW STAT PO 06/07/16 18:36 06/07/16 18:37 DC 06/07/16 18:48 1 TAB ED Course ED COURSE: Vital signs were reviewed and showed Hypotensive The patients medical record was reviewed. The patient was discharge with acute kidney injury on May 21. She also has medical history of multiple drug resistant organisms UTI. The above diagnostic studies were performed and reviewed. ED treatments and interventions as stated above. 1609: The patient was evaluated in room C12B. A complete history and physical examination was performed. 1614: Ordered Morphine Sulfate 4 mg IV, Sodium Chloride 1,000 ml @ 999 mls/hr IV. 1715: I reevaluated the patient and she was resting comfortably. 1756: Ordered Morphine sulfat 4 mg IV. 1836: Ordered Trimethoprim/Sulfamethoxazole 1 tab PO. 1850: Upon reevaluation, the patient is resting comfortably.I discussed my findings with the patient and she understands and agrees with the treatment plan. The patient declined to have pelvic exam today. Based on the patients age, coexisting illnesses, exam and lab findings the decision to treat as an inpatientoutpatient was made. The patient remained stable while under my care. The patient appeared well at the time of discharge. Medical Decision Differential diagnoses includes but is not limited to gastritis, peptic ulcer disease, GERD, gallbladder disease, pancreatitis, small bowel obstruction, acute coronary syndrome, pericarditis, ischemic bowel, irritable bowel disease, irritable bowel syndrome, appendicitis, diverticulitis, malignancy, hernia, urinary tract infection, torsion, [/ectopic (if female)], perforation, trauma, infectious. Patient is a 21-year-old female who presents the ER for blood in the urine associated with left flank pain. Labs show a leukocytosis of 16,000, BMP along with LFTs, bilirubin and lipase was negative. UA shows moderate esterase and white cells. Crit is [address] was negative[address] of the abdomen and pelvis was negative. Chest x-ray was unremarkable. Patient was given 2 doses of morphine. Her committed pelvic but she declined. I do believe her pain is likely muscle skeletal as it is reproducible. Difficult to ascertain if her urine is contaminated or infected. Will treat with the leukocytosis although this is likely secondary to the upper respiratory symptoms that she has been having. Discussed with Pt concerning signs and symptoms to watch out for. Pt was instructed to follow up with their PCP and discussed with the patient their option to return to the ED at anytime for persistent or worsening symptoms. The appropriate anticipatory guidance and out- patient management, including indications for return to the emergency department , were explained at length to the patient and understood. Impression Primary Impression: UTI (urinary tract infection) Additional Impressions: Musculoskeletal back pain Leukocytosis Scribe Attestation The scribe's documentation has been prepared under my direction and personally reviewed by me in its entirety. I confirm that the note above accurately reflects all work, treatment, procedures, and medical decision making performed by me. Departure Information Dispostion Home / Self-Care Prescriptions Sulfamethoxazole-Trimethoprim (Bactrim Ds 800MG/160MG) 1 Tab Tab 1 TAB PO BID, #14 TAB Prov: Idris Mathis, DO 06/07/16 Referrals Nancy Linn D.O. (PCP) Forms HOME CARE DOCUMENTATION FORM, IMPORTANT VISIT INFORMATION Patient Instructions My [facility] Additional Instructions Please follow up with your primary care doctor with in the next 24 hours. Any worsening of your symptoms, please return to the ED immediately. This includes fevers greater than 100.4, persistent nausea vomiting, worsening pain, or any other concerning signs or symptoms from your standpoint. Please take antibiotic as prescribed Problem Qualifiers Primary Impression: UTI (urinary tract infection) Urinary tract infection type: acute cystitis Hematuria presence: with hematuria Qualified Codes: N30.01 - Acute cystitis with hematuria Additional Impressions: Leukocytosis Leukocytosis type: unspecified Qualified Codes: D72.829 - Elevated white blood cell count, unspecified
[2016-06-10] MEDS ORDERED: HYD10 PO (16:05)
[2016-06-10] MEDS ORDERED: OXYC1TAB3 PO (18:16)
[2016-08-16] MEDS ORDERED: DESM0.1T8 PO (16:05)
[2016-08-16] MEDS ORDERED: HYD10 PO (16:05)
== END 2016-06-07 19:09 | disposition home or self-care (01) ==
LOC: C.EDB 14:41 → C.EDC 19:09
DX: N39.0 Urinary tract infection, site not specified (principal); M54.9 Dorsalgia, unspecified; D72.829 Elevated white blood cell count, unspecified; F17.200 Nicotine dependence, unspecified, uncomplicated; Z87.820 Personal history of traumatic brain injury; Z87.828 Personal history of other (healed) physical injury and trauma; Z79.899 Other long term (current) drug therapy; Z83.3 Family history of diabetes mellitus; Z88.8 Allergy status to other drugs, medicaments and biological substances

== ENCOUNTER 2016-07-18 21:01 | Emergency (ER) | payer OTHER ==
[~2016-07-18] VITALS: Ht 157.5 cm; Wt 49.9 kg
[~2016-07-18 21:01] MED LIST changes: +HYD10 PO; +OMEP20TA PO; -OXYC1TAB3 PO; -UNKNOWN ANTIBIOTIC PO
[2016-07-18 21:03] VITALS: TEMP 37.1; Ht 157.5 cm; Wt 49.9 kg
[2016-07-18] MEDS ORDERED: OXYC1TAB3 PO (21:14)
[2016-07-18] MEDS ORDERED: MoRPHine SULFATE 4 MG/ML 1 ML CARP\\VIAL IV STA (21:26)
[2016-07-18] MEDS ORDERED: METOCLOPRAMIDE HCL INJ 5 MG/ML 2 ML VIAL IV STA (21:26)
[2016-07-18] MEDS ORDERED: DiphenhydrAMINE HCL 50 MG/ML VIAL IV STA (21:26)
[2016-07-18] MEDS ORDERED: SODIUM CHLORIDE 0.9% 1000ML 1,000 ML IV STA (21:26)
[2016-07-18] MEDS ORDERED: SODIUM CHLORIDE 0.9% 500ML 500 ML IV STA (21:26)
[2016-07-18 21:58] LABS: URINE APPEARANCE CLEAR (CLEAR); URINE BILIRUBIN NEG (NEG); URINE COLOR YELLOW; URINE NITRITE NEG (NEG); URINE SPECIFIC GRAVITY 1.013 (1.000-1.030); UROBILINOGEN NEG (NEG)
[2016-07-18 22:02] VITALS: O2SAT 99
[2016-07-18 22:05] LABS: MANUAL MICROSCOPIC REQUIRED? NO; REVIEW REQ? NO
[2016-07-18 22:13] LABS: BASO % 0.2 %; BASO ABS # 0.02 K/uL (0-0.2); COMPLETE YES; EOS % 0.5 %; HEMATOCRIT 34.8 % (37-47); IG% 0.2 %; LYMPH % 25.5 %; LYMPH ABS # 3.28 K/uL (1.2-3.4); MEAN CELL VOLUME 91.8 fL (80-100); MEAN CORPUSCULAR HEMOGLOBIN 31.7 pg (25-34); MEAN CORPUSCULAR HGB CONC 34.5 g/dl (32-36); MEAN PLATELET VOLUME 9.6 fL (7.4-10.4); MONO % 5.3 %; NEUT % 68.3 %; PLATELET COUNT 212 K/uL (130-400); RED BLOOD COUNT 3.79 M/uL (4.2-5.4); WHITE BLOOD COUNT 12.87 K/uL (4.8-10.8)
[2016-07-18 22:36] LABS: BUN/CREATININE RATIO 9.8 (10-20); CALCIUM 8.7 mg/dl (8.5-10.1); CREATININE 0.84 mg/dl (0.60-1.20); POTASSIUM 3.6 mmol/L (3.5-5.1)
[2016-07-18 22:41] LABS: PREG INTERNAL NEGATIVE QC NEG CLEAR BACKGROUND; PREG INTERNAL POSITIVE QC POS CONTROL LINE
[2016-07-19 00:43] VITALS: BP 105/52; PULSE 65; O2SAT 98
[2016-07-19] MEDS ORDERED: OXYCODONE IR HOME PACK PO ONE (00:45)
--- NOTE | 2016-07-19 05:29 | EMERGENCY ROOM VISIT NOTE ---
History First contact with patient: 21:22 Chief Complaint: FLANK PAIN Stated Complaint: POSSIBLE KIDNEY STONE, MIGRAINE History of Present Illness The patient is a 21 year old female who presents to the Emergency Room with complaints of left flank suprapubic pain for the past day who has a history of stones and symptoms feel similar. She also has a history of ovarian cysts. She also complains of a typical headache for herself. She describes the pain as aching, ranging in severity 5 out of 10. Nothing makes it better or worse. Patient denies chest pain, dyspnea, sudden onset of headache, vision problems, numbness, tingling, weakness, fever, chills, vomiting, diarrhea, urinary symptoms, vaginal itching or discharge. She does not feel at risk for STI's. Review of Systems See HPI for pertinent positives & negatives. A total of 10 systems reviewed and were otherwise negative. Past Medical/Surgical History Medical Problems: (1) Abdominal pain (2) Contusion of left thumb (3) Cough (4) Epigastric pain (5) Gastritis (6) Headache (7) Headache (8) Headache (9) Intractable migraine (10) Intractable migraine (11) Left shoulder pain (12) Low back pain (13) Microadenoma (14) Migraine (15) Migraine (16) Migraine (17) Migraine (18) Migraine (19) Post concussion syndrome (20) Tobacco Use Disorder Family History Diabetes mellitus Social History Smoking Status: Current Every Day Smoker Alcohol Use: none Drug Use: none Marital Status: single Housing Status: lives with family Occupation Status: employed Current/Historical Medications Scheduled Desmopressin Acetate (Desmopressin Acetate), 0.1 MG PO Q12 Hydrocortisone (Cortef), 10 MG PO BID Omeprazole (Omeprazole), 20 MG PO DAILY Scheduled PRN Oxycodone Ir (Roxicodone Ir), 1 TAB PO Q4H PRN for BREAKTHROUGH PAIN. Allergies Coded Allergies: Ketorolac Tromethamine (Unverified Allergy, Unknown, SEIZURE, 06/07/16) Prochlorperazine (Unverified Allergy, Unknown, SEIZURE, 06/07/16) Serotonin (Verified Allergy, Unknown, HIVES, UNCONTROLLED MOVEMENTS, ) Tramadol (Unverified Allergy, Unknown, SEIZURE, 06/07/16) Physical Exam Vital Signs Date Time Temp Pulse Resp B/P (MAP) Pulse Ox O2 Delivery O2 Flow Rate FiO2 6/9/17 00:43 65 16 105/52 98 Room Air 07/18/16 23:38 61 16 100/53 97 Room Air 07/18/16 22:02 99 Room Air 07/18/16 21:03 37.1 79 18 99 Room Air Pain Rating (0-10): 5.0 Physical Exam VITALS: Vitals are noted on the nurse's note and reviewed by myself. Vital signs stable. GENERAL: Pleasant female watching TV with her mother, in no acute distress, nondiaphoretic, well-developed well-nourished. SKIN: The skin was without rashes, erythema, edema, or bruising. There is no tenting of the skin. Capillary reflex less than 2 seconds. HEAD: Normocephalic atraumatic. EARS: External auditory canals clear, tympanic membranes pearly cameron without erythema or effusion bilaterally. EYES: Pupils equal round and reactive to light and accommodation. Conjunctivae without injection, sclerae without icterus. Extraocular movements intact. NOSE: Patent, turbinates without inflammation or discharge. No sinus tenderness. MOUTH: Mucous membranes moist. Pharynx without erythema or exudate. Uvula midline. Airway patent. Tongue does not deviate. NECK: Supple without nuchal rigidity. No lymphadenopathy. No thyromegaly. Cervical spine is nontender. No JVD. HEART: Regular rate and rhythm without murmurs gallops or rubs. LUNGS: Clear to auscultation bilaterally without wheezes, rales or rhonchi. No dullness to percussion. No retractions or accessory muscle use. ABDOMEN: Positive bowel sounds x 4. Normal tympanic percussion. Soft, tender to palpation left lower suprapubic area, no CVA tenderness, without masses or organomegaly. Moise sign negative. No guarding or rebound tenderness. MUSCULOSKELETAL: No muscle atrophy, erythema, or edema noted. NEURO: Patient was alert and oriented to person place and time. Normal sensation to light and sharp touch. No focal neurological deficits. Medical Decision & Procedures Laboratory Results 07/18/16 21:58 Red Blood Count 3.79, Mean Corpuscular Volume 91.8, Mean Corpuscular Hemoglobin 31.7, Mean Corpuscular Hemoglobin Concent 34.5, Mean Platelet Volume 9.6, Neutrophils (%) (Auto) 68.3, Lymphocytes (%) (Auto) 25.5, Monocytes (%) (Auto) 5.3, Eosinophils (%) (Auto) 0.5, Basophils (%) (Auto) 0.2, Neutrophils # (Auto) 8.79, Lymphocytes # (Auto) 3.28, Monocytes # (Auto) 0.68, Eosinophils # (Auto) 0.07, Basophils # (Auto) 0.02 07/18/16 21:58 Test 07/18/16 21:15 07/18/16 21:58 Urine Color YELLOW Urine Appearance CLEAR (CLEAR) Urine pH 7.0 (4.5-7.5) Urine Specific [place] 1.013 (1.000-1.030) Urine Protein NEG (NEG) Urine Glucose (UA) NEG (NEG) Urine Ketones NEG (NEG) Urine Occult Blood NEG (NEG) Urine Nitrite NEG (NEG) Urine Bilirubin NEG (NEG) Urine Urobilinogen NEG (NEG) Urine Leukocyte Esterase NEG (NEG) White Blood Count 12.87 K/uL (4.8-10.8) Red Blood Count 3.79 M/uL (4.2-5.4) Hemoglobin 12.0 g/dL (12.0-16.0) Hematocrit 34.8 % (37-47) Mean Corpuscular Volume 91.8 fL (80-100) Mean Corpuscular Hemoglobin 31.7 pg (25-34) Mean Corpuscular Hemoglobin Concent 34.5 g/dl (32-36) Platelet Count 212 K/uL (130-400) Mean Platelet Volume 9.6 fL (7.4-10.4) Neutrophils (%) (Auto) 68.3 % Lymphocytes (%) (Auto) 25.5 % Monocytes (%) (Auto) 5.3 % Eosinophils (%) (Auto) 0.5 % Basophils (%) (Auto) 0.2 % Neutrophils # (Auto) 8.79 K/uL (1.4-6.5) Lymphocytes # (Auto) 3.28 K/uL (1.2-3.4) Monocytes # (Auto) 0.68 K/uL (0.11-0.59) Eosinophils # (Auto) 0.07 K/uL (0-0.5) Basophils # (Auto) 0.02 K/uL (0-0.2) RDW Standard Deviation 41.9 fL (36.4-46.3) RDW Coefficient of Variation 12.4 % (11.5-14.5) Immature Granulocyte % (Auto) 0.2 % Immature Granulocyte # (Auto) 0.03 K/uL (0.00-0.02) Anion Gap 8.0 mmol/L (3-11) Est Creatinine Clear Calc Drug Dose 84.2 ml/min Estimated GFR () 116.0 Estimated GFR (Non- 100.1 BUN/Creatinine Ratio 9.8 (10-20) Calcium Level 8.7 mg/dl (8.5-10.1) Total Bilirubin 0.3 mg/dl (0.2-1) Direct Bilirubin 0.1 mg/dl (0-0.2) Aspartate Amino Transf (AST/SGOT) 21 U/L (15-37) Alanine Aminotransferase (ALT/SGPT) 41 U/L (12-78) Alkaline Phosphatase 67 U/L (45-117) Total Protein 7.3 gm/dl (6.4-8.2) Albumin 3.9 gm/dl (3.4-5.0) Human Chorionic Gonadotropin, Qual NEG (NEG) Medications Administered Medications (Trade) Dose Ordered Sig/Alexia Route Start Time Stop Time Status Last Admin Dose Admin Metoclopramide HCl (Reglan Inj) 10 mg NOW STAT IV 07/18/16 21:26 07/18/16 21:28 FL 07/18/16 22:23 10 MG Diphenhydramine HCl (Benadryl Inj) 25 mg NOW STAT IV 07/18/16 21:26 07/18/16 21:28 FL 07/18/16 22:23 25 MG Morphine Sulfate (MoRPHine SULFATE INJ) 4 mg NOW STAT IV 07/18/16 21:26 07/18/16 21:28 FL 07/18/16 22:24 4 MG Sodium Chloride 1,000 ml @ 125 mls/hr Q8H STAT IV 07/18/16 21:26 07/19/16 01:41 FL 07/18/16 21:26 125 MLS/HR Sodium Chloride 500 ml @ 999 mls/hr Q31M STAT IV 07/18/16 21:26 07/18/16 21:56 DC 07/18/16 22:03 999 MLS/HR Oxycodone HCl (Roxicodone Immediate Rel 5MG Home Pack) 1 homepack UD ONCE PO 07/19/16 00:45 07/19/16 00:46 DC 07/19/16 00:44 1 HOMEPACK ED Course Prior records/ancillary studies reviewed. Triage Nursing notes reviewed. Additional history obtained from family. The patient's history was concerning for abdominal pain. Differential diagnosis: Etiologies such as ovarian cyst, drug-seeking behavior, appendicitis, diverticulitis, PUD, biliary pathology, UTI, pancreatitis, obstruction, mesenteric ischemia, aortic pathology, infections, inflammatory bowel disease, renal colic, as well as others were entertained. Physical examination findings: As above. ER treatment provided: Morphine On reassessment the patient felt better. Diagnostics interpreted by me: The labs revealed leukocytosis which appears chronic in nature. Patient was advised to follow-up family care for this. Negative hCG. Negative urine Imaging studies: Ultrasound concerning for left ovarian cyst per radiology Exam and history seem consistent with left ovarian cyst. No signs of kidney stone. Negative urine. She is advised follow-up with OB in a few days and family care for her chronic leukocytosis. She is advised to return to the ER immediately for fevers, severe pain, vomiting, worsening signs or symptoms or as needed. Patient did not have acute abdomen on exam. She is well- appearing. Patient denied any risk for STI's and did not want testing. By the evaluation outlined above emergent etiologies such as appendicitis, diverticulitis, PUD, biliary pathology, UTI, pancreatitis, obstruction, mesenteric ischemia, aortic pathology, infections, inflammatory bowel disease, renal colic, as well as others were deemed relatively unlikely. The pt informed about the findings as listed above. All questions were answered and pleased with the treatment. Return instructions were outlined and the patient was discharged in stable condition. Referral: The patient was referred back to their primary care physician and [facility] for follow-up in 2 to 3 days for a recheck of the current condition. Case reviewed with my attending Medical Decision As above Impression Primary Impression: Left ovarian cyst Departure Information Dispostion Home / Self-Care Condition GOOD Forms HOME CARE DOCUMENTATION FORM, IMPORTANT VISIT INFORMATION Patient Instructions Cysts Ovarian, My [facility] Additional Instructions You have a chronically elevated white count. Follow-up with family care for this. DO NOT drive, drink alcohol, operate machinery, or perform dangerous activities today. You were given medications in the ER that can affect your ability to safely function or operate a vehicle. Oxycodone (OxyIR) 5mg: Take 1-2 pills every four hours for breakthrough pain. Avoid alcohol, operating machinery or dangerous equipment, working on ladders or roofs, DRIVING, or situations where being under the influence may be dangerous. It is recommended to use an [id number] stool softener such as Colace, 100mg twice daily while taking this medication to avoid constipation. Acetaminophen(Tylenol) may be used for fever or pain. Use 1000mg every six hours as needed. Avoid using more than 3000mg in a 24 hour period. This medication can be taken if you need to drive, work, or perform activities which may be dangerous when taking narcotic pain medication. Repeat pelvic ultrasound in 6 weeks for resolution of cyst. Continue current medications. Return to the ER immediately for chest pain, dyspnea, abdominal pain, fevers, worsening signs or symptoms or as needed. Call your [facility] tomorrow to arrange follow up in the next 2-3 days.
--- NOTE | 2016-07-19 06:42 | DIAGNOSTIC IMAGING REPORT ---
RENAL ULTRASOUND CLINICAL HISTORY: Left flank and suprapubic pain. COMPARISON STUDY: Renal ultrasound October 09, [address] of the abdomen and pelvis June 07, 2016. TECHNIQUE: Sonography of the kidneys and the urinary bladder was performed. FINDINGS: The right kidney measures 9.9 x 3.5 x 4.6 cm and the left measures 9 x 4.1 x 5 cm. There is no hydronephrosis. Renal echogenicity, size and cortical thickness are normal. There is no renal mass or calculus by sonography. The bladder is unremarkable. Both ureteral jets were identified. IMPRESSION: Normal renal ultrasound. No hydronephrosis. Electronically signed by: Selvin Montenegro M.D. 07/19/2016 6:40 AM Dictated Date/Time: 07/19/2016 6:39 AM
--- NOTE | 2016-07-19 07:27 | DIAGNOSTIC IMAGING REPORT ---
ULTRASOUND OF THE PELVIS CLINICAL HISTORY: Suprapubic pelvic pain. COMPARISON STUDY: Pelvic CT dated 06/07/2016. TECHNIQUE: Real-time, grayscale, and color flow sonography of the pelvis is performed both transabdominally and endovaginally. Images are reviewed in the transverse and longitudinal planes. FINDINGS: Uterus: The uterus is normal in size and echotexture, measuring 7.2 x 3.6 x 4.2 cm. Fluid is noted within the endocervical canal. Endometrium: The endometrium is normal in appearance, and the endometrial stripe is top normal in thickness measuring up to 1.2 cm. Ovaries: The ovaries are normal in size and morphology. The right ovary measures 2.9 x 1.8 x 2.2 cm and the left ovary measures 3.3 x 2.6 x 2.5 cm. There are bilateral ovarian follicles. Normal Doppler waveforms are shown within both ovaries. Pelvis: There is trace free fluid in the cul-de-sac. No concerning adnexal lesion is seen. IMPRESSION: 1. No acute sonographic abnormality is identified in the pelvis. 2. There is trace free fluid in the cul-de-sac, likely within physiologic limits. Electronically signed by: Clayton Austin M.D. 07/19/2016 7:26 AM Dictated Date/Time: 07/19/2016 7:24 AM
[2016-08-16] MEDS ORDERED: HYD10 PO (16:05)
[2016-08-16] MEDS ORDERED: DESM0.1T8 PO (16:05)
== END 2016-07-19 00:48 | disposition home or self-care (01) ==
LOC: C.EDB 21:02 → C.EDC 07-19 00:48
DX: N83.202 Unspecified ovarian cyst, left side (principal); D72.829 Elevated white blood cell count, unspecified; F17.200 Nicotine dependence, unspecified, uncomplicated; Z87.442 Personal history of urinary calculi; Z83.3 Family history of diabetes mellitus

== ENCOUNTER 2016-08-14 20:23 | Emergency (ER) | payer OTHER ==
[~2016-08-14] VITALS: Ht 157.5 cm; Wt 50.0 kg
[~2016-08-14 20:23] MED LIST changes: -HYD10 PO; +OXYC1TAB3 PO
[2016-08-14 20:24] VITALS: TEMP 36.7; Ht 157.5 cm; Wt 50.0 kg
--- NOTE | 2016-08-14 21:09 | DIAGNOSTIC IMAGING REPORT ---
RIGHT WRIST W/NAVICULAR MIN 3 VIEWS CLINICAL HISTORY: Right wrist pain following injury. COMPARISON: Right hand radiographs June 10, 2008. FINDINGS: Alignment of the right wrist is anatomic. Carpal bones are intact. There is no acute fracture. IMPRESSION: No acute fracture or dislocation of the right wrist. Electronically signed by: Selvin Montenegro M.D. 08/14/2016 9:08 PM Dictated Date/Time: 08/14/2016 9:07 PM
[2016-08-14] MEDS ORDERED: IBUPROFEN 600 MG TAB PO STA (21:50)
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
[2016-08-14 22:33] VITALS: BP 102/61; PULSE 71; O2SAT 98
[2016-08-16] MEDS ORDERED: DESM0.1T8 PO (16:05)
[2016-08-16] MEDS ORDERED: HYD10 PO (16:05)
== END 2016-08-14 22:34 | disposition home or self-care (01) ==
LOC: C.EDB 20:24 → C.EDD 22:34
DX: M25.531 Pain in right wrist (principal); Z79.899 Other long term (current) drug therapy; Z87.19 Personal history of other diseases of the digestive system; Z87.898 Personal history of other specified conditions; W51.XXXA Accidental striking against or bumped into by another person, initial encounter

== ENCOUNTER 2016-08-16 19:26 | Emergency (ER) | payer OTHER ==
[~2016-08-16] VITALS: Ht 157.5 cm; Wt 49.3 kg
[~2016-08-16 19:26] MED LIST changes: +DESM0.1T8 PO; +HYD10 PO; -OMEP20TA PO
[2016-08-16 19:36] VITALS: TEMP 37.5; Ht 157.5 cm; Wt 49.3 kg
[2016-08-16] MEDS ORDERED: HYDROmorphone INJ 0.5 MG/0.5 ML SYR IV STA ×2 (19:51→20:42)
[2016-08-16] MEDS ORDERED: SODIUM CHLORIDE 0.9% 1000ML 1,000 ML IV STA (19:51)
[2016-08-16] MEDS ORDERED: SODIUM CHLORIDE 0.9% 1000ML 1,000 ML IV ONE (19:51)
[2016-08-16] MEDS ORDERED: ONDANSETRON INJ 2 MG/ML 2 ML VIAL IV STA (19:51)
[2016-08-16] MEDS ORDERED: HYDROCORTISONE SOD SUCCINATE 100 MG/2 ML VIAL IV STA (19:51)
--- NOTE | 2016-08-16 19:54 | EMERGENCY ROOM VISIT NOTE ---
History Report prepared by Abelino: Esther Rosario Under the Supervision of: Dr. Eugenio Wang M.D. First contact with patient: 19:43 Chief Complaint: HEADACHE Stated Complaint: VOMITING,MIGRAINE History of Present Illness The patient is a 21 year old female who presents to the Emergency Room with complaints of a worsening headache that began this morning. The patient states that she has a history of migraines and that her symptoms are similar to her typical migraine. The patient states that she has had multiple vomiting episodes this throughout the day. She woke up with a sore throat and left ear pain. The patient states that her headache began after the first vomiting episodes. She notes light sensitivity also. The patient denies abdominal pain, cough, or rhinorrhea. She takes hydrocortisone daily. Source of History: patient, family Onset: this morning Position: other (global) Quality: other (headache) Timing: worsening Associated Symptoms: + sorethroat, + vomiting, No cough, No abdominal pain Note: The patient is experiencing light sensitivity. Review of Systems See HPI for pertinent positives & negatives. A total of 10 systems reviewed and were otherwise negative. Past Medical & Surgical Medical Problems: (1) Abdominal pain (2) Contusion of left thumb (3) Cough (4) Epigastric pain (5) Gastritis (6) Headache (7) Headache (8) Headache (9) Intractable migraine (10) Intractable migraine (11) Left shoulder pain (12) Low back pain (13) Microadenoma (14) Migraine (15) Migraine (16) Migraine (17) Migraine (18) Migraine (19) Post concussion syndrome (20) Tobacco Use Disorder Old medical records were reviewed. Nurse's notes were reviewed and I agree with. Family History Diabetes mellitus Social History Smoking Status: Current Every Day Smoker Alcohol Use: none Drug Use: none Marital Status: single Housing Status: lives with family Occupation Status: employed Current/Historical Medications Scheduled Desmopressin Acetate (Desmopressin Acetate), 0.1 MG PO Q12 Hydrocortisone (Cortef), 10 MG PO BID Ibuprofen (Advil), 400 MG PO PRN UD Allergies Coded Allergies: Ketorolac Tromethamine (Unverified Allergy, Unknown, SEIZURE, 06/07/16) Prochlorperazine (Unverified Allergy, Unknown, SEIZURE, 06/07/16) Serotonin (Verified Allergy, Unknown, HIVES, UNCONTROLLED MOVEMENTS, ) Tramadol (Unverified Allergy, Unknown, SEIZURE, 06/07/16) Physical Exam Vital Signs Date Time Temp Pulse Resp B/P (MAP) Pulse Ox O2 Delivery O2 Flow Rate FiO2 08/16/16 21:32 90 16 94/50 99 08/16/16 21:04 90 16 94/50 99 Room Air 08/16/16 19:36 37.5 99 18 105/77 100 Room Air Physical Exam General: Well developed well nourished mildly ill but non toxic appearing young female, breathing comfortably on room air. Normal speech. Wearing sunglasses. Holding emesis bag. HEENT: Normal cephalic atraumatic. Pupils are equal round and reactive to light. Extraocular movements are intact. Oropharynx is pink with moist mucous membranes. No swelling of the mouth lips or tongue. Neck: Supple with a midline trachea. No meningeal signs or stiffness, no JVD or bruits. No Stridor. Negative Kernig sign or Brudzinski sign. Chest: Clear to auscultation bilaterally. No wheezes or rhonchi. No increased work of breathing. Heart: regular rate and rhythm. Abdomen: Soft nontender, nondistended without rebound guarding or rigidity. Extremities: No cyanosis clubbing or edema. No calf tenderness or assymetry Spine/Back. Non tender to palpation. No CVA tenderness Skin: Good turgor without rashes. Neurologic exam: Cranial nerves two through 12 are intact. Motor and sensation are intact and symmetrical throughout. Medical Decision & Procedures Laboratory Results 08/16/16 20:09 Red Blood Count 4.45, Mean Corpuscular Volume 89.9, Mean Corpuscular Hemoglobin 29.2, Mean Corpuscular Hemoglobin Concent 32.5, Mean Platelet Volume 9.9, Neutrophils (%) (Auto) 68.8, Lymphocytes (%) (Auto) 22.4, Monocytes (%) (Auto) 7.4, Eosinophils (%) (Auto) 1.0, Basophils (%) (Auto) 0.1, Neutrophils # (Auto) 9.66, Lymphocytes # (Auto) 3.15, Monocytes # (Auto) 1.04, Eosinophils # (Auto) 0.14, Basophils # (Auto) 0.02 08/16/16 20:09 Test 08/16/16 20:09 08/16/16 20:43 White Blood Count 14.05 K/uL (4.8-10.8) Red Blood Count 4.45 M/uL (4.2-5.4) Hemoglobin 13.0 g/dL (12.0-16.0) Hematocrit 40.0 % (37-47) Mean Corpuscular Volume 89.9 fL (80-100) Mean Corpuscular Hemoglobin 29.2 pg (25-34) Mean Corpuscular Hemoglobin Concent 32.5 g/dl (32-36) Platelet Count 224 K/uL (130-400) Mean Platelet Volume 9.9 fL (7.4-10.4) Neutrophils (%) (Auto) 68.8 % Lymphocytes (%) (Auto) 22.4 % Monocytes (%) (Auto) 7.4 % Eosinophils (%) (Auto) 1.0 % Basophils (%) (Auto) 0.1 % Neutrophils # (Auto) 9.66 K/uL (1.4-6.5) Lymphocytes # (Auto) 3.15 K/uL (1.2-3.4) Monocytes # (Auto) 1.04 K/uL (0.11-0.59) Eosinophils # (Auto) 0.14 K/uL (0-0.5) Basophils # (Auto) 0.02 K/uL (0-0.2) RDW Standard Deviation 40.5 fL (36.4-46.3) RDW Coefficient of Variation 12.3 % (11.5-14.5) Immature Granulocyte % (Auto) 0.3 % Immature Granulocyte # (Auto) 0.04 K/uL (0.00-0.02) Anion Gap 6.0 mmol/L (3-11) Est Creatinine Clear Calc Drug Dose 70.5 ml/min Estimated GFR () 95.1 Estimated GFR (Non- 82.0 BUN/Creatinine Ratio 8.0 (10-20) Calcium Level 9.2 mg/dl (8.5-10.1) Total Bilirubin 0.6 mg/dl (0.2-1) Direct Bilirubin 0.2 mg/dl (0-0.2) Aspartate Amino Transf (AST/SGOT) 14 U/L (15-37) Alanine Aminotransferase (ALT/SGPT) 25 U/L (12-78) Alkaline Phosphatase 68 U/L (45-117) Total Protein 7.4 gm/dl (6.4-8.2) Albumin 3.9 gm/dl (3.4-5.0) Lipase 76 U/L (73-393) Human Chorionic Gonadotropin, Qual NEG (NEG) Laboratory studies as stated above per my review. Medications Administered Medications (Trade) Dose Ordered Sig/Alexia Route Start Time Stop Time Status Last Admin Dose Admin Sodium Chloride 1,000 ml @ 999 mls/hr Q1H1M STAT IV 08/16/16 19:51 08/16/16 20:51 DC 08/16/16 20:05 999 MLS/HR Sodium Chloride 1,000 ml @ 200 mls/hr Q5H ONCE IV 08/16/16 19:51 08/16/16 21:48 DC 08/16/16 21:00 200 MLS/HR Ondansetron HCl (Zofran Inj) 4 mg NOW STAT IV 08/16/16 19:51 08/16/16 19:53 DC 08/16/16 20:05 4 MG Hydrocortisone Sodium Succinate (Solu-Cortef IV) 50 mg NOW STAT IV 08/16/16 19:51 08/16/16 19:53 DC 08/16/16 20:05 50 MG Hydromorphone HCl (Dilaudid Inj) 0.5 mg NOW STAT IV 08/16/16 19:51 08/16/16 19:53 DC 08/16/16 20:05 0.5 MG Hydromorphone HCl (Dilaudid Inj) 0.5 mg NOW STAT IV 08/16/16 20:42 08/16/16 20:43 DC 08/16/16 21:00 0.5 MG Oxycodone HCl (Roxicodone Immediate Rel 5MG Home Pack) 1 homepack UD ONCE PO 08/16/16 21:30 08/16/16 21:31 DC 08/16/16 21:28 1 HOMEPACK ED Course 1943: Past medical records reviewed. The patient was evaluated in room A12, and a complete history and physical examination were performed. 1950: Dilaudid Inj 0.5 mg IV, Solu-Cortef IV 50 mg IV, Zofran Inj 4 mg IV, Sodium Chloride 1,000 ml @ 200 mls/hr IV, Sodium Chloride 1,000 ml @ 999 mls/hr IV. 2033: I reevaluated the patient and she states that she still has a headache but the vomiting has improved. []: Upon reevaluation, the patient is hemodynamically stable. I discussed the results and treatment plan with the patient. She verbalized agreement of the treatment plan. The patient was discharged home. Medical Decision Differentials include, but are not limited to; migraine, dehydration, adrenal insufficiency, meningitis, intracranial process. Medication Reconciliation: I attest that I have personally reviewed the patient' s current medication list. Blood pressure Screening: Patient was found to have normal blood pressure on screening and does not require follow-up. This patient comes in as described above. She has a long history of migraine she started vomiting today and now is a migraine as well. She is complaining of feeling nauseated. IV access established and she was hydrated with a 1 L IV normal saline bolus. She does not appear to be toxic. She has nothing to suggest meningitis or encephalitis. Her abdomen is benign and nontender and has nothing to suggest peritonitis. Multiple blood testing was obtained she was given Zofran IV as well as Dilaudid IV. She was also given IV Solu-Cortef given the fact that she has a history of adrenal insufficiency. She was reassessed frequently. She seemed much more comfortable after the meds but still wanted more medications for headache she was given a second dose of IV Dilaudid. Her white count is elevated was likely from vomiting all day additionally she is on chronic steroids. Her tympanic membranes are normal. Her electrolytes are normal. She has nothing to suggest acute liver or gallbladder disease. She is not . She is feeling better and will be discharged home. She should return if: increasing pain, headaches different than typical, fever or chills, worsening symptoms, any new problems or concerns and follow up with her regular doctor Friday for recheck. Impression Primary Impression: Migraine Additional Impressions: Vomiting Dehydration Scribe Attestation The scribe's documentation has been prepared under my direction and personally reviewed by me in its entirety. I confirm that the note above accurately reflects all work, treatment, procedures, and medical decision making performed by me. Departure Information Dispostion Home / Self-Care Referrals Nancy Linn D.O. (PCP) Patient Instructions My [facility] Problem Qualifiers
[2016-08-16 20:34] LABS: BASO % 0.1 %; BASO ABS # 0.02 K/uL (0-0.2); COMPLETE YES; IG% 0.3 %; LYMPH % 22.4 %; LYMPH ABS # 3.15 K/uL (1.2-3.4); MEAN CELL VOLUME 89.9 fL (80-100); MEAN CORPUSCULAR HEMOGLOBIN 29.2 pg (25-34); MEAN CORPUSCULAR HGB CONC 32.5 g/dl (32-36); MEAN PLATELET VOLUME 9.9 fL (7.4-10.4); MONO % 7.4 %; NEUT % 68.8 %; PLATELET COUNT 224 K/uL (130-400); RED BLOOD COUNT 4.45 M/uL (4.2-5.4); WHITE BLOOD COUNT 14.05 K/uL (4.8-10.8)
[2016-08-16 20:53] LABS: CALCIUM 9.2 mg/dl (8.5-10.1); CREATININE 0.99 mg/dl (0.60-1.20); POTASSIUM 3.7 mmol/L (3.5-5.1)
[2016-08-16] MEDS ORDERED: IBUP-1050 PO (21:07)
[2016-08-16 21:23] LABS: PREG INTERNAL NEGATIVE QC NEG CLEAR BACKGROUND; PREG INTERNAL POSITIVE QC POS CONTROL LINE
[2016-08-16] MEDS ORDERED: OXYCODONE IR HOME PACK PO ONE (21:30)
[2016-08-16 21:32] VITALS: BP 94/50; PULSE 90; O2SAT 99
== END 2016-08-16 21:35 | disposition home or self-care (01) ==
LOC: C.EDB 19:27 → C.EDA 21:35
DX: G43.909 Migraine, unspecified, not intractable, without status migrainosus (principal); R11.10 Vomiting, unspecified; E86.0 Dehydration; F17.200 Nicotine dependence, unspecified, uncomplicated; Z87.19 Personal history of other diseases of the digestive system; Z87.828 Personal history of other (healed) physical injury and trauma; Z87.820 Personal history of traumatic brain injury; Z88.5 Allergy status to narcotic agent; Z88.8 Allergy status to other drugs, medicaments and biological substances; Z83.3 Family history of diabetes mellitus

== ENCOUNTER 2016-10-22 17:55 | Emergency (ER) | payer OTHER ==
[~2016-10-22] VITALS: Ht 157.5 cm; Wt 45.7 kg
[~2016-10-22 17:55] MED LIST changes: +IBUP-1050 PO; -OXYC1TAB3 PO
[2016-10-22 18:10] VITALS: TEMP 36.7; Ht 157.5 cm; Wt 45.7 kg
[2016-10-22] MEDS ORDERED: DiphenhydrAMINE HCL 50 MG/ML VIAL IV STA (19:23)
[2016-10-22] MEDS ORDERED: SODIUM CHLORIDE 0.9% 1000ML 1,000 ML IV STA (19:23)
[2016-10-22] MEDS ORDERED: METOCLOPRAMIDE HCL INJ 5 MG/ML 2 ML VIAL IV STA (19:23)
[2016-10-22 20:00] VITALS: BP 86/53; PULSE 72; O2SAT 100
[2016-10-22 20:20] LABS: BASO % 0.3 %; BASO ABS # 0.02 K/uL (0-0.2); COMPLETE YES; EOS % 1.4 %; HEMATOCRIT 38.4 % (37-47); IG% 0.1 %; LYMPH % 44.1 %; LYMPH ABS # 3.12 K/uL (1.2-3.4); MEAN CELL VOLUME 88.5 fL (80-100); MEAN CORPUSCULAR HGB CONC 32.8 g/dl (32-36); MONO % 5.4 %; NEUT % 48.7 %; PLATELET COUNT 221 K/uL (130-400); RED BLOOD COUNT 4.34 M/uL (4.2-5.4); WHITE BLOOD COUNT 7.07 K/uL (4.8-10.8)
[2016-10-22] MEDS ORDERED: ONDANSETRON INJ 2 MG/ML 2 ML VIAL IV STA (20:21)
--- NOTE | 2016-10-22 20:21 | EMERGENCY ROOM VISIT NOTE ---
History Report prepared by Tiffanieibe: Kavya Patrick Under the Supervision of: Dr. Gunnar Silva M.D. First contact with patient: 18:51 Chief Complaint: HEADACHE Stated Complaint: MIGRAINE,DIZZINESS,VOMITTING History of Present Illness The patient is a 21 year old female who presents to the Emergency Room with complaints of a sudden migraine starting last night. The patient states that her headache is on both sides of her head. She also notes nausea and vomiting but denies any vision changes, numbness, tingling, fever, or chills. The patient has a history of chronic migraines. She rates her headache as a 8/10 and took Advil with no relief. The patient has a history of a pituitary adenoma was resectioned in April. This is her first migraine of this severity since the surgery. Source of History: patient Onset: last night Position: head Symptom Intensity: 8/10 Quality: ache Timing: other (sudden) Associated Symptoms: + nausea, + vomiting, No fevers, No chills Review of Systems See HPI for pertinent positives and negatives. A total of ten systems were reviewed and were otherwise negative. Past Medical & Surgical Medical Problems: (1) Abdominal pain (2) Contusion of left thumb (3) Cough (4) Epigastric pain (5) Gastritis (6) Headache (7) Headache (8) Headache (9) Intractable migraine (10) Intractable migraine (11) Left shoulder pain (12) Low back pain (13) Microadenoma (14) Migraine (15) Migraine (16) Migraine (17) Migraine (18) Migraine (19) Post concussion syndrome (20) Tobacco Use Disorder Family History Diabetes mellitus Social History Smoking Status: Current Every Day Smoker Alcohol Use: none Drug Use: none Marital Status: single Housing Status: lives with family Occupation Status: employed Current/Historical Medications No Active Prescriptions or Reported Meds Allergies Coded Allergies: Ketorolac Tromethamine (Unverified Allergy, Unknown, SEIZURE, 10/22/16) Metoclopramide (Unverified Allergy, Unknown, ANXIETY, 10/22/16) Prochlorperazine (Unverified Allergy, Unknown, SEIZURE, 10/22/16) Serotonin (Verified Allergy, Unknown, HIVES, UNCONTROLLED MOVEMENTS, ) Tramadol (Unverified Allergy, Unknown, SEIZURE, 10/22/16) Physical Exam Vital Signs Date Time Temp Pulse Resp B/P (MAP) Pulse Ox O2 Delivery O2 Flow Rate FiO2 10/22/16 20:00 72 16 86/53 100 Room Air 10/22/16 18:10 36.7 89 18 87/55 99 Room Air Physical Exam GENERAL: Awake, alert, uncomfortable-appearing, in no distress HENT: Normocephalic, atraumatic. Oropharynx unremarkable. Dry MM. EYES: Normal conjunctiva. Sclera non-icteric. NECK: Supple. No nuchal rigidity. FROM. No JVD. RESPIRATORY: Clear to auscultation. CARDIAC: Regular rate, normal rhythm. Extremities warm and well perfused. Pulses equal. ABDOMEN: Soft, non-distended. No tenderness to palpation. No rebound or guarding. No masses. RECTAL: Deferred. MUSCULOSKELETAL: Chest examination reveals no tenderness. The back is symmetrical on inspection without obvious abnormality. There is no CVA tenderness to palpation. No joint edema. LOWER EXTREMITIES: Calves are equal size bilaterally and non-tender. No edema. No discoloration. NEURO: Normal sensorium. No sensory or motor deficits noted. SKIN: No rash or jaundice noted. Medical Decision & Procedures Laboratory Results 10/22/16 19:40 Red Blood Count 4.34, Mean Corpuscular Volume 88.5, Mean Corpuscular Hemoglobin 29.0, Mean Corpuscular Hemoglobin Concent 32.8, Mean Platelet Volume 10.0, Neutrophils (%) (Auto) 48.7, Lymphocytes (%) (Auto) 44.1, Monocytes (%) (Auto) 5.4, Eosinophils (%) (Auto) 1.4, Basophils (%) (Auto) 0.3, Neutrophils # (Auto) 3.44, Lymphocytes # (Auto) 3.12, Monocytes # (Auto) 0.38, Eosinophils # (Auto) 0.10, Basophils # (Auto) 0.02 10/22/16 19:40 Test 10/22/16 19:40 White Blood Count 7.07 K/uL (4.8-10.8) Red Blood Count 4.34 M/uL (4.2-5.4) Hemoglobin 12.6 g/dL (12.0-16.0) Hematocrit 38.4 % (37-47) Mean Corpuscular Volume 88.5 fL (80-100) Mean Corpuscular Hemoglobin 29.0 pg (25-34) Mean Corpuscular Hemoglobin Concent 32.8 g/dl (32-36) Platelet Count 221 K/uL (130-400) Mean Platelet Volume 10.0 fL (7.4-10.4) Neutrophils (%) (Auto) 48.7 % Lymphocytes (%) (Auto) 44.1 % Monocytes (%) (Auto) 5.4 % Eosinophils (%) (Auto) 1.4 % Basophils (%) (Auto) 0.3 % Neutrophils # (Auto) 3.44 K/uL (1.4-6.5) Lymphocytes # (Auto) 3.12 K/uL (1.2-3.4) Monocytes # (Auto) 0.38 K/uL (0.11-0.59) Eosinophils # (Auto) 0.10 K/uL (0-0.5) Basophils # (Auto) 0.02 K/uL (0-0.2) RDW Standard Deviation 40.6 fL (36.4-46.3) RDW Coefficient of Variation 12.6 % (11.5-14.5) Immature Granulocyte % (Auto) 0.1 % Immature Granulocyte # (Auto) 0.01 K/uL (0.00-0.02) Anion Gap 6.0 mmol/L (3-11) Est Creatinine Clear Calc Drug Dose 77.1 ml/min Estimated GFR () 116.0 Estimated GFR (Non- 100.1 BUN/Creatinine Ratio 11.0 (10-20) Calcium Level 9.1 mg/dl (8.5-10.1) Human Chorionic Gonadotropin, Qual NEG (NEG) Laboratory results reviewed by me Medications Administered Medications (Trade) Dose Ordered Sig/Alexai Route Start Time Stop Time Status Last Admin Dose Admin Sodium Chloride 1,000 ml @ 999 mls/hr Q1H1M STAT IV 10/22/16 19:23 10/22/16 20:23 DC 10/22/16 19:23 999 MLS/HR Dexamethasone Sodium Phosphate (Decadron Inj) 10 mg NOW ONCE IV 10/22/16 20:30 10/22/16 20:31 DC 10/22/16 20:30 10 MG Ondansetron HCl (Zofran Inj) 4 mg NOW STAT IV 10/22/16 20:21 10/22/16 20:23 DC 10/22/16 20:30 4 MG ED Course 1922: Reglan Inj 10 mg IV, Benadryl Inj 25 mg IV, Sodium Chloride 1000 ml @ 999 mls/hr IV. 2010: The patient was evaluated in room B12B. A complete history and physical exam was performed. 2020: Zofran Inj 4 mg IV. 2029: Decadron Inj 10 mg IV. 2108: The patient eloped. Medical Decision I reviewed the patient's past medical history, medications, and the nursing notes as described above. Differential diagnosis: migraine, dehydration, electrolyte abnormality, and intracranial hemorrhage. The patient is a 21-year-old woman with a past medical history of chronic migraines and pituitary adenoma resection in April who presents emergency Department with migraine that began progressively since yesterday per history of present illness. Arrival patient appears uncomfortable but in no acute distress. Afebrile with stable vital signs. Neck is supple range of motion. She is neuro intact. Considering history of chronic migraines and her reassuring neuro exam brain imaging not indicated at this time. Otherwise, CBC and chemistry unremarkable. She was ordered for migraine cocktail however refused Reglan and Benadryl saying that she was allergic. Met with the patient and discussed that symptoms she is felt in the past or not an allergy rather an adverse effect which can be managed with additional Benadryl or even Ativan. The patient was still reluctant to take this. Did explain to the patient that I would not give her narcotics for her chronic migraines. She has received this in the past narcotics for these chronic conditions were no longer recommended, rather they may make her chronic condition worse by promoting hyperalgesia. I did suggest we try dexamethasone and Zofran which can be affective as well. The patient was agreeable to this plan initially. However after receiving the medications, he thereafter the patient was observed to be attempting to elope. A nurse promptly removed her IV and the patient eloped without the opportunity to further discuss her concerns. Medication Reconcilliation Current Medication List: was personally reviewed by me Blood Pressure Screening Patient's blood pressure: Normal blood pressure Impression Primary Impression: Migraine Scribe Attestation The scribe's documentation has been prepared under my direction and personally reviewed by me in its entirety. I confirm that the note above accurately reflects all work, treatment, procedures, and medical decision making performed by me. Departure Information Dispostion Other Prescriptions No Active Prescriptions or Reported Meds Referrals Nancy Linn D.O. (PCP) Forms HOME CARE DOCUMENTATION FORM, IMPORTANT VISIT INFORMATION Patient Instructions My [facility]
[2016-10-22 20:29] LABS: CALCIUM 9.1 mg/dl (8.5-10.1); CREATININE 0.84 mg/dl (0.60-1.20)
[2016-10-22] MEDS ORDERED: DEXAMETHASONE SOD INJ 10 MG/ML VIAL IV ONE (20:30)
[2016-10-22 20:49] LABS: PREG INTERNAL NEGATIVE QC NEG CLEAR BACKGROUND; PREG INTERNAL POSITIVE QC POS CONTROL LINE
== END 2016-10-22 21:02 | disposition home or self-care (01) ==
LOC: C.EDB 17:57
DX: G43.909 Migraine, unspecified, not intractable, without status migrainosus (principal); F17.200 Nicotine dependence, unspecified, uncomplicated; Z87.820 Personal history of traumatic brain injury; Z88.8 Allergy status to other drugs, medicaments and biological substances; Z83.3 Family history of diabetes mellitus

== ENCOUNTER 2017-02-13 09:48 | Emergency (ER) | payer OTHER ==
[~2017-02-13] VITALS: Ht 157.5 cm; Wt 44.5 kg
[2017-02-13 09:50] VITALS: BP 107/59; PULSE 58; TEMP 37.2; O2SAT 97; Ht 157.5 cm; Wt 44.5 kg
[2017-02-13] MEDS ORDERED: ACET-1256 PO (10:30)
[2017-02-13] MEDS ORDERED: OSELTAMIVIR PHOSPHATE 75 MG CAP PO STA (10:51)
[2017-02-13] MEDS ORDERED: OSEL75CA12 PO (10:54)
--- NOTE | 2017-02-13 10:54 | EMERGENCY ROOM VISIT NOTE ---
History Report prepared by Abelino: Jael Ibarra Under the Supervision of: Marimar WilsonO. 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 She notes fevers, headache, sore throat, chest pain, cough, back pain, and hip pain. She currently rates her pain a 7/10 in severity. She denies any nausea, vomiting, or diarrhea. She notes her best friend was diagnosed recently with the flu. She has taken Tylenol for her symptoms, though no relief. 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 Review of Systems See HPI for pertinent positives & negatives. A total of 10 systems reviewed and were otherwise negative. 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) (5) Epigastric pain (6) Gastritis (7) Headache (8) Headache (9) Headache (10) Intractable migraine (11) Intractable migraine (12) Kidney calculi (13) Left shoulder pain (14) Low back pain (15) Microadenoma (16) Migraine (17) Migraine (18) Migraine (19) Migraine (20) Migraine (21) Post concussion syndrome (22) Tobacco Use Disorder Family History Cancer Diabetes mellitus Gallbladder disease Heart disease Hypertension Kidney disease Kidney stones Lung disease Seizures Social History Smoking Status: Current Every Day Smoker (1 ppd) Alcohol Use: none Drug Use: none Marital Status: single Housing Status: lives with family Occupation Status: employed Current/Historical Medications Scheduled Acetaminophen (Tylenol), 1,000 MG PO UD Oseltamivir (Tamiflu), 75 MG PO BID Allergies Coded Allergies: Ketorolac Tromethamine (Unverified Allergy, Unknown, SEIZURE, 02/13/17) Metoclopramide (Unverified Allergy, Unknown, ANXIETY, 02/13/17) Prochlorperazine (Unverified Allergy, Unknown, SEIZURE, 02/13/17) Serotonin (Verified Allergy, Unknown, HIVES, UNCONTROLLED MOVEMENTS, ) Tramadol (Unverified Allergy, Unknown, SEIZURE, 02/13/17) Physical Exam Vital Signs Date Time Temp Pulse Resp B/P (MAP) Pulse Ox O2 Delivery O2 Flow Rate FiO2 02/13/17 09:50 37.2 58 20 107/59 97 Room Air Physical Exam CONSTITUTIONAL/VITAL SIGNS: Reviewed / noted above. GENERAL: Non-toxic in appearance. INTEGUMENTARY: Warm, dry, and [place]. HEAD: Normocephalic. EYES: without scleral icterus or trauma. ENT/OROPHARYNX: clear and moist. LYMPHADENOPATHY/NECK: Is supple without lymphadenopathy or meningismus. RESPIRATORY: Lungs clear and equal. CARDIOVASCULAR: Regular rate and rhythm. GI/ABDOMEN: Soft and nontender. No organomegaly or pulsatile mass. No rebound or guarding. Normal bowel sounds. EXTREMITIES: Warm and well perfused. BACK: No CVA tenderness. NEUROLOGICAL: Intact without focal deficits. PSYCHIATRIC: normal affect. MUSCULOSKELETAL: Normally developed with good muscle tone. TRIAGE NURSING DOCUMENTATION REVIEWED. Medical Decision & Procedures ED Course 1048: Previous medical records were reviewed. The patient was evaluated in room B12B. A complete history and physical examination was performed. She is resting comfortably. I discussed the results and treatment plan with the patient. I answered all pertaining questions that she had. She expressed understanding and verbalized agreement. The patient will be discharged home. 1051: Ordered Tamiflu 75 mg PO Medical Decision Differential includes viral illness, influenza, streptococcal pharyngitis, meningitis, pneumonia, sinusitis, UTI, pyelonephritis, and otitis media. This is a 21-year-old female who presents to the ED with a chief complaint of flulike symptoms. The patient reports fevers and chills as well as body aches, sore throat, headache, congestion, back and hip pain. The patient states that her symptoms started last night. She states that she has a roommate that was formally diagnosed with influenza last week. The patient has an unremarkable exam. She is in no distress. The patient was started on Tamiflu. She was given her first dose here. Medication Reconcilliation Current Medication List: was personally reviewed by me Blood Pressure Screening Patient's blood pressure: Normal blood pressure Impression Primary Impression: Influenza-like symptoms Scribe Attestation The scribe's documentation has been prepared under my direction and personally reviewed by me in its entirety. I confirm that the note above accurately reflects all work, treatment, procedures, and medical decision making performed by me. Departure Information Dispostion Home / Self-Care Prescriptions Oseltamivir (Tamiflu) 75 Mg Cap 75 MG PO BID, #10 CAP Prov: River Chavarria D.O. 02/13/17 Referrals Nancy Linn D.O. (PCP) Forms HOME CARE DOCUMENTATION FORM, IMPORTANT VISIT INFORMATION Patient Instructions My [facility] Additional Instructions Tamiflu as prescribed. Take [id number] cold and flu medicine for symptoms.
== END 2017-02-13 11:13 | disposition home or self-care (01) ==
LOC: C.EDB 09:49
DX: R50.9 Fever, unspecified (principal); J02.9 Acute pharyngitis, unspecified; R07.9 Chest pain, unspecified; R05 Cough; M54.9 Dorsalgia, unspecified; M25.559 Pain in unspecified hip; F17.200 Nicotine dependence, unspecified, uncomplicated; Z80.9 Family history of malignant neoplasm, unspecified; Z83.3 Family history of diabetes mellitus; Z83.79 Family history of other diseases of the digestive system; Z82.49 Family history of ischemic heart disease and other diseases of the circulatory system; Z84.1 Family history of disorders of kidney and ureter; Z82.0 Family history of epilepsy and other diseases of the nervous system

== ENCOUNTER 2017-04-10 01:04 | Emergency (ER) | payer OTHER ==
[~2017-04-10] VITALS: Ht 157.5 cm; Wt 45.9 kg
[~2017-04-10 01:04] MED LIST changes: +ACET-1256 PO; -DESM0.1T8 PO; -HYD10 PO; -IBUP-1050 PO; +OSEL75CA12 PO
[2017-04-10 01:08] VITALS: TEMP 36.9; Ht 157.5 cm; Wt 45.9 kg
--- NOTE | 2017-04-10 01:29 | EMERGENCY ROOM VISIT NOTE ---
History Report prepared by Abelino: Clary Madera Under the Supervision of: Dr. Dusty Erwin M.D. First contact with patient: 01:13 Chief Complaint: SHOULDER PAIN Stated Complaint: POSSIBLE BREAK OR FRACTURE OF COLLAR BONE History of Present Illness The patient is a 22 year old female who presents to the Emergency Room with complaints of persistent right sided collar bone pain that began about an hour prior to arrival. The patient states that her dog jumped on her, causing her to fall and land on her shoulder. She denies hitting her head or losing consciousness. The patient does not have any other complaints. Source of History: patient Onset: one hour prior to arrival Position: other (collar bone) Quality: other (collar bone pain) Timing: other (persistent) Associated Symptoms: No LOC Note: Patient denies hitting her head. Review of Systems See HPI for pertinent positives & negatives. A total of 6 systems reviewed and were otherwise negative. 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) (5) Epigastric pain (6) Gastritis (7) Headache (8) Headache (9) Headache (10) Intractable migraine (11) Intractable migraine (12) Kidney calculi (13) Left shoulder pain (14) Low back pain (15) Microadenoma (16) Migraine (17) Migraine (18) Migraine (19) Migraine (20) Migraine (21) Post concussion syndrome (22) Tobacco Use Disorder Family History Cancer Diabetes mellitus Gallbladder disease Heart disease Hypertension Kidney disease Kidney stones Lung disease Seizures Social History Smoking Status: Current Every Day Smoker Alcohol Use: none Drug Use: none Marital Status: single Housing Status: lives with family Occupation Status: employed Current/Historical Medications Scheduled PRN Acetaminophen (Tylenol), 1,000 MG PO Q4 PRN for Pain or Fever Allergies Coded Allergies: Ketorolac Tromethamine (Unverified Allergy, Unknown, SEIZURE, 02/13/17) Metoclopramide (Unverified Allergy, Unknown, ANXIETY, 02/13/17) Prochlorperazine (Unverified Allergy, Unknown, SEIZURE, 02/13/17) Serotonin (Verified Allergy, Unknown, HIVES, UNCONTROLLED MOVEMENTS, ) Tramadol (Unverified Allergy, Unknown, SEIZURE, 02/13/17) Physical Exam Vital Signs Date Time Temp Pulse Resp B/P (MAP) Pulse Ox O2 Delivery O2 Flow Rate FiO2 04/10/17 02:28 85 18 98/50 98 04/10/17 01:08 36.9 94 18 105/59 98 Room Air Physical Exam GENERAL: Patient is well appearing, mildly anxious, but in no acute distress. HEENT: No acute trauma, normocephalic atraumatic, mucous membranes moist, no nasal congestion, no scleral icterus. NECK: No stridor, no adenopathy, no meningismus, trachea is midline. LUNGS: No dyspnea. Clear to auscultation and equal bilaterally. No wheeze, no rhonchi. HEART: Regular rate and rhythm. No murmurs, rubs, gallops appreciated. EXTREMITIES: Tenderness to palpation to proximal right clavicle. Normal motion all extremities, no cyanosis, no edema. NEUROLOGIC: Distal A/V intact. Alert and oriented, no acute motor or sensory deficits, no focal weakness, cranial nerves grossly intact. SKIN: No rash, no jaundice, no diaphoresis. Medical Decision & Procedures ER Provider Diagnostic Interpretation: X ray results are stated below per my interpretation and the radiologist's interpretation. Clavicle X-ray: 2 views: No fracture and no dislocation. Medications Administered Medications (Trade) Dose Ordered Sig/Alexia Route Start Time Stop Time Status Last Admin Dose Admin Oxycodone HCl (Roxicodone Immediate Rel Tab) 5 mg NOW STAT PO 04/10/17 01:16 04/10/17 01:17 DC 04/10/17 01:30 5 MG ED Course 0115: The patient was evaluated in room A11. A complete history and physical exam was performed. 0215: Reevaluated the patient and discussed contusion care and that she needs to follow up with primary care physician: she verbalized understanding and agreement. The patient is ready for discharge. Medical Decision 22 yr old female who had mechanical trip/fall landing on right shoulder and resultant clavicle pain. Shoulder itself unremarkable. TTP over medial right clavicle. No evidence fracture on imaging. N/V intact. Given single dose Oxy IR here with instructions regarding to etoh, driving, etc. She will be placed in sling and I advised follow up with PCP if continued discomfort. Head Trauma GCS Score: 15 Medication Reconcilliation Current Medication List: was personally reviewed by me Blood Pressure Screening Patient's blood pressure: Normal blood pressure Blood pressure disposition: Did not require urgent referral Impression Primary Impression: Contusion of right clavicle Scribe Attestation The scribe's documentation has been prepared under my direction and personally reviewed by me in its entirety. I confirm that the note above accurately reflects all work, treatment, procedures, and medical decision making performed by me. Departure Information Dispostion Home / Self-Care Referrals Nancy Linn D.O. (PCP) Forms HOME CARE DOCUMENTATION FORM, IMPORTANT VISIT INFORMATION Patient Instructions My [facility] Additional Instructions No definitive findings of fracture were noted on xray at this time. Use are sling, rest and apply ice periodically over the next 48 hours. Gradually start using your shoulder more and more over the next few days. If continued pain/discomfort please follow up with your primary care provider. Use Tylenol and Ibuprofen as needed for discomfort. Problem Qualifiers Primary Impression: Contusion of right clavicle Encounter type: initial encounter Qualified Codes: S40.011A - Contusion of right shoulder, initial encounter
[2017-04-10] MEDS: OXYCODONE HCL IR 5 MG TAB (IMMEDIATE RELEASE) PO STA (01:30)
[2017-04-10 02:28] VITALS: BP 98/50; PULSE 85; O2SAT 98
--- NOTE | 2017-04-10 06:35 | DIAGNOSTIC IMAGING REPORT ---
R CLAVICLE HISTORY: 22 years-old Female right clavicle injury in fall acute right clavicle pain status post fall COMPARISON: Chest radiograph 06/07/2016 TECHNIQUE: 2 views of the right clavicle FINDINGS: There is no acute fracture or dislocation. The clavicle and imaged right shoulder appear intact. No significant degenerative changes. The imaged lung [place] appear clear. No opaque foreign body. IMPRESSION: No acute fracture or dislocation. The above report was generated using voice recognition software. It may contain grammatical, syntax or spelling errors. Electronically signed by: Manoj Daniel M.D. 04/10/2017 6:34 AM Dictated Date/Time: 04/10/2017 6:33 AM
== END 2017-04-10 02:20 | disposition home or self-care (01) ==
LOC: C.EDB 01:07 → C.EDA 02:20
DX: S40.011A Contusion of right shoulder, initial encounter (principal); W19.XXXA Unspecified fall, initial encounter; Z83.3 Family history of diabetes mellitus; Z82.49 Family history of ischemic heart disease and other diseases of the circulatory system; Z82.0 Family history of epilepsy and other diseases of the nervous system; F17.200 Nicotine dependence, unspecified, uncomplicated; Z88.8 Allergy status to other drugs, medicaments and biological substances

== ENCOUNTER 2020-01-21 08:49 | Observation (INO) ==
[2020-01-21] MEDS ORDERED: SODIUM CHLORIDE 0.9% 1000ML 1,000 ML IV ONE (09:28)
[2020-01-21] MEDS ORDERED: ACETAMINOPHEN 1,000 MG/100 ML VIAL IV STA (09:28)
[2020-01-21] MEDS ORDERED: ONDANSETRON INJ 2 MG/ML 2 ML VIAL IV STA (09:28)
[2020-01-21 09:46] LABS: Basophils # (auto) 0.02 K/uL (0-0.2); Basophils % (auto) 0.3 %; Eosinophils # (auto) 0.08 K/uL (0-0.5); Eosinophils % (auto) 1.1 %; Hematocrit (blood only) 37.5 % (37-47); Hemoglobin 12.3 g/dL (12.0-16.0); Immature Granulocytes # (auto) 0.01 K/uL (0.00-0.02); Immature Granulocytes % (auto) 0.1 %; Lymphocytes # (auto) 2.32 K/uL (1.2-3.4); Lymphocytes % (auto) 31.1 %; Mean Corpuscular Hemoglobin 30.5 pg (25-34); Mean Corpuscular Hgb Conc 32.8 g/dL (32-36); Mean Corpuscular Volume 93.1 fL (80-100); Mean Platelet Volume 10.2 fL (7.4-10.4); Monocytes # (auto) 0.41 K/uL (0.11-0.59); Monocytes % (auto) 5.5 %; Neutrophils # (auto) 4.63 K/uL (1.4-6.5); Neutrophils % (auto) 61.9 %; Platelet Count 199 K/uL (130-400); RDW Coefficient of Variation 12.7 % (11.5-14.5); RDW Standard Deviation 43.3 fL (36.4-46.3); Red Blood Count 4.03 M/uL (4.2-5.4); White Blood Count 7.47 K/uL (4.8-10.8)
[2020-01-21 09:51] LABS: Appearance Urine Cloudy (Clear); Bacteria Urine Automated Negative (Negative); Bilirubin Urine Negative (Negative); Blood Urine 2+ (Negative); Color Urine Yellow; Epithelial Cell Urine Auto >30 /lpf (0-5); Glucose Urine UA Negative (Negative); Ketones Urine Negative (Negative); Leukocyte Esterase Urine Negative (Negative); Nitrite Urine Negative (Negative); Protein Urine Negative (Negative); RBC Urine Automated >30 /hpf (0-4); Specific Gravity Urine 1.017 (1.000-1.030); Urobilinogen Urine Negative (Negative); pH Urine 8.5 (4.5-7.5)
[2020-01-21 10:02] LABS: Albumin Level 3.8 gm/dl (3.4-5.0); Calcium 8.9 mg/dl (8.5-10.1); Creatinine Clr Calc Pharmacy 72.2 ml/min; Est GFR (African American) 105.9; Est GFR (Non-African American) 91.4; Potassium 4.1 mmol/L (3.5-5.1)
[2020-01-21 10:05] LABS: Albumin Globulin Ratio 1.2 (0.9-2); Bilirubin,Total 0.3 mg/dl (0.2-1); Globulin 3.2 gm/dl (2.5-4.0)
--- NOTE | 2020-01-21 10:20 | CT Scan Report ---
CT SCAN OF THE ABDOMEN AND PELVIS WITHOUT CONTRAST CLINICAL HISTORY: Worsening right flank pain COMPARISON STUDY: CT scan dated 01/14/2020 TECHNIQUE: CT scan of the abdomen and pelvis was performed from the lung bases to the proximal femurs . Images are reviewed in the axial, sagittal, and coronal planes. IV contrast was not administered fo r this examination. A dose lowering technique was utilized adhering to the principles of ALARA. CT DOSE: 264.50 mGy.cm FINDINGS: Lower chest: The heart is normal in size and configuration, without pericardial effusion. The lung ba ses and pleural spaces are clear. Liver: The unenhanced liver is normal in size, contour, and attenuation. There is no intrahepatic brian iary ductal dilatation. Gallbladder: Unremarkable. Spleen: Normal in size and attenuation. Pancreas: Unremarkable. Adrenal glands: Unremarkable. Kidneys: There is persistent right-sided hydronephrosis. There is a 3 mm right pelvic basin calcifica tion likely representing a distal right ureteral calculus. Bowel: There are no transition zones to indicate bowel obstruction. There is scattered stool within t he colon. The appendix appears normal. There is no acute diverticulitis. Peritoneum: There is no free air. There is a small amount of free fluid in the pelvis, likely physiol ogic. Vasculature: The abdominal aorta is normal in course and caliber. Adenopathy: None. Pelvic viscera: Bilateral ovarian follicles are visualized. Skeletal structures: No destructive osseous lesions are seen. IMPRESSION: 1. No evidence of bowel obstruction. No evidence of free air 2. Normal appendix. No evidence of acute diverticulitis 3. Persistent right-sided hydronephrosis and hydroureter 3. Persistent 3 mm right pelvic basin calcification, likely representing an obstructing distal right ureteral calculus ACT 112: Negative or not required by law. Electronically signed by: Americo Aguilar M.D. 01/21/2020 10:19 AM
[2020-01-21] MEDS ORDERED: MoRPHine SULFATE 2 MG/ML CARP IV STA (10:29)
--- NOTE | 2020-01-21 10:41 | Emergency Department Note ---
History of Present Illness General Chief complaint: Kidney Stone Stated complaint: RT SIDED KIDNEY STONE Time Seen by Provider: 01/21/20 09:06 Source: patient Mode of arrival: ambulatory Limitations: no limitations History of Present Illness Provider complaint: Right flank pain Maximum Pain Intensity: 7 This is a 24-year-old female who presents to the ED with a chief complaint of right flank pain. The patient states that this is her third ER visit in the past week since she was diagnosed with a right-sided distal ureteral stone. She states it was 4 mm. The patient states that she recently ran out of her oxycodone on Friday, 2 days ago. She had increased pain today. She also re ported some frequency with urination and some nausea. Home Medications Medication Instructions Recorded Confirmed Type tamsulosin [Flomax] 0.4 mg PO HS 01/21/20 01/21/20 History Allergies Allergy/AdvReac Type Severity Reaction Status Date / Time ketorolac Allergy Unknown SEIZURE Verified 01/21/20 09:52 metoclopramide Allergy Unknown ANXIETY Verified 01/21/20 09:52 prochlorperazine Allergy Unknown SEIZURE Verified 01/21/20 09:52 tramadol Allergy Unknown SEIZURE Verified 01/21/20 09:52 Serotonin Allergy Unknown HIVES, Uncoded 01/21/20 09:52 UNCONTROLLED MOVEMENTS Past Med/Surg History Medical History Microadenoma Migraine Pituitary cyst Seizure Social History Smoking Status: Current every day smoker Tobacco Type: Cigarettes Preferred Language: Ecuadorean Communication Ability: Effective Visual Impairment: No Limitations Hearing Ability: Normal Feels Safe at Home: Yes Review of Systems A total of 10 systems reviewed and were otherwise negative Physical Exam Vital Signs Vital Signs - 24 hr 01/21/20 09:00 01/21/20 11:14 Temperature 36.9 C Temperature Source Oral Pulse Rate 67 Pulse Rate [Finger] 68 Respiratory Rate 16 16 Respiratory Effort / Characteristics Non-Labored Non-Labored Spontaneous Respiratory Depth Normal Normal Respiratory Pattern Regular Regular Blood Pressure 111/68 Blood Pressure [Right Arm] 97/60 L Blood Pressure Mean 82 Blood Pressure Mean [Right Arm] 72 Blood Pressure Position Sitting Blood Pressure Position [Right Arm] Lying Pulse Oximetry 99 99 Oxygen Delivery Method Room Air Room Air Sepsis Recent Fever Within 48 Hours No Sepsis New/Unexplained Change in Mental Status No Sepsis Action Taken by Nursing No Action Required CONSTITUTIONAL/VITAL SIGNS: Reviewed / noted above. GENERAL: Non-toxic in appearance. INTEGUMENTARY: Warm, dry, and [place]. HEAD: Normocephalic. EYES: without scleral icterus or trauma. ENT/OROPHARYNX: clear and moist. LYMPHADENOPATHY/NECK: Is supple without lymphadenopathy or meningismus. RESPIRATORY: Lungs clear and equal. CARDIOVASCULAR: Regular rate and rhythm. GI/ABDOMEN: Soft and nontender. No organomegaly or pulsatile mass. No rebound or guarding. Normal bowel sounds. EXTREMITIES: Warm and well perfused. BACK: Right-sided CVA tenderness. NEUROLOGICAL: Intact without focal deficits. PSYCHIATRIC: normal affect. MUSCULOSKELETAL: Normally developed with good muscle tone. TRIAGE NURSING DOCUMENTATION REVIEWED. Course Administered Medications Discontinued Medications Sodium Chloride (Nss 1000ml) 1,000 mls @ 999 mls/hr IV .Q1H1M ONE Stop: 01/21/20 10:28 Last Infusion: 01/21/20 11:15 Dose: 0 mls/hr Documented by: [id number] Admin: 01/21/20 09:42 Dose: 999 mls/hr Documented by: [id number] Acetaminophen (Ofirmev) 1,000 mg in 100 mls @ 400 mls/hr IV NOW STA Stop: 01/21/20 09:42 Last Infusion: 01/21/20 11:16 Dose: 0 mls/hr Documented by: [id number] Admin: 01/21/20 09:42 Dose: 400 mls/hr Documented by: [id number] Morphine Sulfate (Morphine Sulfate 2 Mg/Ml Carp) 2 mg IV NOW STA Stop: 01/21/20 10:30 Last Admin: 01/21/20 10:37 Dose: 2 mg Documented by: [id number] Ondansetron HCl (Ondansetron Inj 2 Mg/Ml 2 Ml Vial) 4 mg IV NOW STA Stop: 01/21/20 09:29 Last Admin: 01/21/20 09:42 Dose: 4 mg Documented by: [id number] Medical Decision Making Differential Diagnosis Differential considered: pancreatitis, hepatitis, acute cholecystitis, AAA, UTI, pyelonephritis, kidney stones, appendicitis, diverticulitis, shingles, bowel obstruction, mesenteric ischemia, intussusception,hernia ovarian torsion, ruptured ovarian cyst,ectopic , . Medical Records Attestation: I reviewed the patient's medical records. Home Medications Current Medication List: was personally reviewed by me Laboratory Data Attestation: I reviewed the patient's lab results. Result diagrams: 01/21/20 09:15 01/21/20 09:15 Lab Results 01/21/20 01/21/20 01/21/20 Range/Units 09:10 09:15 09:15 WBC 7.47 (4.8-10.8) K/uL RBC 4.03 L (4.2-5.4) M/uL Hgb 12.3 (12.0-16.0) g/dL Hct 37.5 (37-47) % MCV 93.1 (80-100) fL MCH 30.5 (25-34) pg MCHC 32.8 (32-36) g/dL RDW Std Deviation 43.3 (36.4-46.3) fL RDW Coeff of Rosalie 12.7 (11.5-14.5) % Plt Count 199 (130-400) K/uL MPV 10.2 (7.4-10.4) fL Immature Gran % (Auto) 0.1 % Neut % (Auto) 61.9 % Lymph % (Auto) 31.1 % [place] % (Auto) 5.5 % Eos % (Auto) 1.1 % Baso % (Auto) 0.3 % Neut # (Auto) 4.63 (1.4-6.5) K/uL Lymph # (Auto) 2.32 (1.2-3.4) K/uL [place] # (Auto) 0.41 (0.11-0.59) K/uL Eos # (Auto) 0.08 (0-0.5) K/uL Baso # (Auto) 0.02 (0-0.2) K/uL Immature Gran # (Auto) 0.01 (0.00-0.02) K/uL Sodium 140 (136-145) mmol/L Potassium 4.1 (3.5-5.1) mmol/L Chloride 109 H (98-107) mmol/L Carbon Dioxide 27 (21-32) mmol/L Anion Gap 4.0 (3-11) BUN 11 (7-18) mg/dl Creatinine 0.89 (0.6-1.2) mg/dl Est Cr Clr Drug Dosing 72.2 ml/min Est GFR ( Amer) 105.9 Est GFR (Non-Af Amer) 91.4 BUN/Creatinine Ratio 12.0 (10-20) Glucose 86 (70-99) mg/dl Calcium 8.9 (8.5-10.1) mg/dl Total Bilirubin 0.3 (0.2-1) mg/dl AST 18 (15-37) U/L ALT 18 (12-78) U/L Alkaline Phosphatase 54 (45-117) U/L Total Protein 7.0 (6.4-8.2) gm/dl Albumin 3.8 (3.4-5.0) gm/dl Globulin 3.2 (2.5-4.0) gm/dl Albumin/Globulin Ratio 1.2 (0.9-2) Urine Color Yellow Urine Appearance Cloudy A (Clear) Urine pH 8.5 H (4.5-7.5) Ur Specific [place] 1.017 (1.000-1.030) Urine Protein Negative (Negative) Urine Glucose (UA) Negative (Negative) Urine Ketones Negative (Negative) Urine Blood 2+ H (Negative) Urine Nitrite Negative (Negative) Urine Bilirubin Negative (Negative) Urine Urobilinogen Negative (Negative) Ur Leukocyte Esterase Negative (Negative) Urine WBC (Auto) 1-5 (0-5) /hpf Urine RBC (Auto) >30 H (0-4) /hpf U Hyaline Cast (Auto) 1-5 (0-5) /lpf U Epithel Cells (Auto) >30 H (0-5) /lpf Urine Bacteria (Auto) Negative (Negative) Imaging Data Radiologist's Impression: CT scan of the abdomen pelvis:IMPRESSION: 1. No evidence of bowel obstruction. No evidence of free air 2. Normal appendix. No evidence of acute diverticulitis 3. Persistent right-sided hydronephrosis and hydroureter 3. Persistent 3 mm right pelvic basin calcification, likely representing an obs tructing distal right ureteral calculus MDM Narrative This a 24-year-old female who presents to the ED with a chief complaint of right flank pain. This is her third visit to the ED in 1 week for the same pain. Her CT scan today shows a 3 mm right pelvic base and calcification that might be related to a ureteral stone. She does have right-sided hydronephrosis and hydroureter proximally. Her CBC and chemistry panel was unremarkable. She does have 2+ blood in the urine. The patient was treated with IV Tylenol as well as some IV morphine as the Tylenol did not seem to help. She is allergic to Toradol. The patient was also given IV fluids and IV Zofran. Because of the persistence of her symptoms and the CAT scan findings, urology consult was obtained with Dr. Middleton office. They are going to plan on placing a stent. They would like her to be admitted to the medicine service. We spoke with the hospitalist, who will see the patient. Impression & Plan Renal colic Discharge Plan Visit Data Chief Complaint: Kidney Stone Stated Complaint: RT SIDED KIDNEY STONE ED Provider: River Chavarria ED Midlevel Provider: Phillip Robles Discharge Problem: Renal colic Patient Disposition: Being Evaluated by Hospitalist Forms Stand Alone Forms: [facility] Prescriptions Prescriptions: No Action tamsulosin [Flomax] 0.4 mg capsule 0.4 mg PO HS RF: 0 Referrals Referrals: Nancy Linn DO [Primary Care Provider] -
[2020-01-21] MEDS ORDERED: HYDROmorphone INJ 0.5 MG/0.5 ML SYR IV STA (11:37)
--- NOTE | 2020-01-21 11:48 | Emergency Department Note ---
ED Visit Note I saw this patient today and discussed my findings w/ Dr. Chavarria who has examined the patient independently. Please see his documentation for assessment and plan. . Resident Activity Tracking Resident Involvement: Resident Care Provided Care Provided: Adult ED
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
[2020-01-21] MEDS ORDERED: KETOROLAC 30 MG/ML VIAL ONE (13:41)
[2020-01-21] MEDS ORDERED: MIDAZOLAM HCL 1 MG/ML 2ML VIAL ONE (13:41)
[2020-01-21] MEDS ORDERED: LIDOCAINE HCL 2% 2 ML VIAL/AMP(20MG/ML) INFIL ONE (13:41)
[2020-01-21] MEDS ORDERED: PROPOFOL IV EMULSION 10 MG/ML 20 ML VIAL IV ONE (13:41)
[2020-01-21] MEDS ORDERED: fentaNYL citrate 100 MCG/2 ML VIAL ONE (13:41)
[2020-01-21] MEDS ORDERED: ONDANSETRON INJ 2 MG/ML 2 ML VIAL IV PRN ×2 (14:18→16:16)
[2020-01-21] MEDS ORDERED: ATROPINE SULFATE 0.1 MG/ML 10ML SYR IV PRN (14:18)
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
[2020-01-21] MEDS ORDERED: DIATRIZOATE MEGLUMINE 30% 100ML VIAL INSTIL ONE (15:10)
--- NOTE | 2020-01-21 15:20 | Operative Report ---
PG Post Operative Report Pre & Post Diagnosis Operation Date: 01/21/20 10:50 Pre-Op Diagnosis: Right Kidney Stone Post-Op Diagnosis: Right Kidney Stone I identified the patient and participated in the time-out.: Yes Procedure Operation Date: 01/21/20 10:50 Actual Procedures p Cystoscopy, Right Retrograde Pyelogram, Right Ureteral Stent Insertion; Right Ureteral Dilation; Right Ureteroscopy; basket stone extraction(Right) - Fer Middleton DO Surgeon Fer Middleton, II, DO Industrial Design Intern None Estimated Blood Loss 1 Findings Consistent with Post-Op Diagnosis Stone discovered behind severe distal stricture. The small fragments and larger fragments were basketed and removed. Specimens Stone Fragments Drains 6 Fr Multilength Anesthesia Type General Complications none Disposition Disposition: Recovery Room Indications Patient with bothersome stones. Risks and benefits discussed at length. Description of Procedure Patient was consented and brought back to the operating room. Patient was placed under anesthesia in the supine position and moved to the dorsal lithotomy position. Patient was prepped and draped in the regular sterile fashion. A time out was completed. A 30degree Cystoscope was placed into the bladder and the entire bladder was examined. The UO's were identified. The UO was cannulized with a catheter and a retrograde pyelogram was completed. A wire was then placed. The Rigid ureteroscope was taken into the ureter. A severe stricture was discovered and dilated. The stone was identified. The larger fragments were grasped and removed and sent for analysis. The entire area was once again examined. No residual large fragments or areas of concern were noted. The scope was slowly removed with the wire left in place. Contrast was placed through the scope for a pyelogram to assist in stent placement. The entire ureter was examined as the scope was slowly removed. No obstructions or other areas of concern were noted. With the wire in place, a 6 Fr Double J stent was placed. It was confirmed with fluoroscopy. With the stent in place, the bladder was emptied. The scope was removed. The patient was cleaned, aroused from anesthesia, and transferred to the pacu in stable condition having tolerated the procedure well with no complications. I was present and participated in all aspects of the procedure. The patient will be monitored in the PACU until transferred. I attest to the content of the Intraoperative Record and any orders documented therein. Any exceptions are noted below.
[2020-01-21] MEDS: fentaNYL citrate 100 MCG/2 ML VIAL IV PRN ×3 (15:23→15:33)
[2020-01-21] MEDS ORDERED: CIPROFLOXACIN / D5W 400 MG/200 ML BAG IV ONE (15:30)
--- NOTE | 2020-01-21 15:53 | Anesthesiology Progress Note ---
Date of Service January 21, 2020 Anesthesia Post Procedure Vital Signs Vital Signs: Temp Pulse Pulse Pulse Resp BP BP 01/21/20 15:45 54 L 14 118/70 01/21/20 15:35 60 14 96/57 L 01/21/20 15:25 67 14 97/66 L 01/21/20 15:15 52 L 14 90/55 L 01/21/20 15:08 36.5 C 55 L 14 92/45 L 01/21/20 14:09 36.8 C 57 L 16 01/21/20 13:53 68 20 92/52 L 01/21/20 11:14 68 16 01/21/20 09:00 36.9 C 67 16 111/68 BP Pulse Ox 01/21/20 15:45 99 01/21/20 15:35 97 01/21/20 15:25 96 01/21/20 15:15 98 01/21/20 15:08 100 01/21/20 14:09 84/44 L 98 01/21/20 13:53 98 01/21/20 11:14 97/60 L 99 01/21/20 09:00 99 Pain Intensity Right Flank: Pain Intensity: 5 Transfer of Care Handoff Completed per policy Notes Mental Status: alert / awake / arousable Patient Amnestic to Procedure: Yes Nausea / Vomiting: adequately controlled Pain: adequately controlled Airway Patency, RR, SpO2: stable & adequate BP & HR: stable & adequate Hydration State: stable & adequate Anesthetic Complications: no major complications apparent
[2020-01-21] MEDS ORDERED: MoRPHine SULFATE 4 MG/ML 1 ML CARP\\VIAL IV PRN (16:16)
[2020-01-21] MEDS ORDERED: SODIUM CHLORIDE 0.9% 1000ML 1,000 ML IV SCH (16:16)
--- NOTE | 2020-01-21 16:38 | Fluoroscopy Report ---
FL retrograde includes kub CLINICAL HISTORY: RT RETROGRADE COMPARISON STUDY: None. FLUOROSCOPY TIME: 11 seconds. FINDINGS: 3 fluoroscopic spot images of the abdomen and pelvis demonstrate retrograde opacification o f the right renal collecting system with placement of a right ureteral stent. The ureteral stent appe ars in good position. IMPRESSION: Fluoroscopy provided for right ureteral stent placement which appears in good position. ACT 112: Negative or not required by law. Electronically signed by: Tim Aguila M.D. 01/21/2020 4:37 PM
[2020-01-21] MEDS ORDERED: OXYBUTYNIN CHLORIDE 5 MG TAB PO PRN (17:05)
--- NOTE | 2020-01-21 17:49 | Discharge Summary ---
Date of Service January 21, 2020 Admission HPI Per Admitting Provider This is a 24 y/o female with a LMP of 2 weeks ago and a PMH of pituitary microadenoma s/p resection, diabetes insipidus after resection (currently without symptoms), and prior nephrolithiasis who presents to the ED for the third time in the past week due to right flank pain found secondary to an obstructing right distal ureter stone. Pt reports right flank pain initially started about a week ago and has been intermittent. She had been able to manage at home with oxycodone, Tylenol, and ibuprofen but pain today became constant and more severe so returned to the ED for evaluation. When pain is severe, she notes associated nausea and vomiting. Denies fevers, chills, sweats, hematuria, dysuria. Does have pressure in suprapubic area with frequent urge to urinate but only urinating small amounts. She has a history of kidneys stones 2-3 years ago but symptoms were not nearly as severe and did not require any intervention. Admission Exam Per Admitting Provider Physical Exam Gen-AAO x 3, NAD, Afebrile Head-NCAT, EOMI, PERRLA, Anicteric Sclera, No Posterior Pharyngeal Erythema Neck-Supple, No JVD, No Thyromegaly, No Masses, No LAD, No Bruits Lungs-Clear to Auscultation Bilaterally, No Rales, No Rhonchi, No Wheezing, No Crepitus Chest-No S4, +S1, +S2, No S3, No Murmurs, No Rubs, No Gallops, No Ectopy Abdomen-Soft, Bowel Sounds Present, Non Tender, Non Distended, No Hepatomegaly, No Splenomegaly, No Palpable Masses, No Rebound, No Rigidity, No Guarding Musculoskeletal-Full Range of Motion Bilaterally, +Right CVAT Extremities-No Cyanosis, No Clubbing, No Edema Nuero-Cranial Nerves II-XII grossly intact, Motor WNL, DTRs WNL, Strength WNL, Non Focal Psych-Normal Mood Principal Diagnosis Renal Stone Discharge Exam Physical Exam Gen-AAO x 3, NAD, Afebrile Head-NCAT, EOMI, PERRLA, Anicteric Sclera, No Posterior Pharyngeal Erythema Neck-Supple, No JVD, No Thyromegaly, No Masses, No LAD, No Bruits Lungs-Clear to Auscultation Bilaterally, No Rales, No Rhonchi, No Wheezing, No Crepitus Chest-No S4, +S1, +S2, No S3, No Murmurs, No Rubs, No Gallops, No Ectopy Abdomen-Soft, Bowel Sounds Present, Non Tender, Non Distended, No Hepatomegaly, No Splenomegaly, No Palpable Masses, No Rebound, No Rigidity, No Guarding Musculoskeletal-Full Range of Motion Bilaterally, no CVAT Extremities-No Cyanosis, No Clubbing, No Edema Nuero-Cranial Nerves II-XII grossly intact, Motor WNL, DTRs WNL, Strength WNL, Non Focal Psych-Normal Mood Discharge Data Allergies Allergy/AdvReac Type Severity Reaction Status Date / Time ketorolac Allergy Unknown SEIZURE Verified 01/21/20 09:52 metoclopramide Allergy Unknown ANXIETY Verified 01/21/20 09:52 prochlorperazine Allergy Unknown SEIZURE Verified 01/21/20 09:52 tramadol Allergy Unknown SEIZURE Verified 01/21/20 09:52 Serotonin Allergy Unknown HIVES, Uncoded 01/21/20 09:52 UNCONTROLLED MOVEMENTS Consultations 01/21/20 11:33 ED Decision to Admit Stat Procedures Performed Operation Date: 01/21/20 10:50 Actual Procedures p Cystoscopy, Right Retrograde Pyelogram, Right Ureteral Stent Insertion; Right Ureteral Dilation; Right Ureteroscopy; basket stone extraction(Right) - Fer Middleton, Ordered Studies 01/21/20 09:28 CT abd pelvis wo con Stat 01/21/20 14:15 FL retrograde includes kub Routine Current Diagnoses Unspecified hydronephrosis (01/21/20) Calculus of kidney (01/21/20) Calculus of ureter (01/21/20) Unspecified renal colic (01/21/20) Encounter for other preprocedural examination (01/21/20) Allergies ketorolac Allergy (Unknown, Verified 01/21/20 09:52) SEIZURE metoclopramide Allergy (Unknown, Verified 01/21/20 09:52) ANXIETY prochlorperazine Allergy (Unknown, Verified 01/21/20 09:52) SEIZURE tramadol Allergy (Unknown, Verified 01/21/20 09:52) SEIZURE Serotonin Allergy (Unknown, Uncoded 01/21/20 09:52) HIVES, UNCONTROLLED MOVEMENTS Height/Weight/Isolation Height 5 ft 2 in Weight 46.5 kg Chemistry 01/21/20 09:15 Sodium 140 Potassium 4.1 Chloride 109 H Carbon Dioxide 27 Anion Gap 4.0 BUN 11 Creatinine 0.89 Glucose 86 Urinalysis 01/21/20 09:10 Urine Color Yellow Urine Appearance Cloudy A Urine pH 8.5 H Ur Specific [place] 1.017 Urine Protein Negative Urine Glucose (UA) Negative Urine Ketones Negative Urine Blood 2+ H Urine Nitrite Negative Urine Bilirubin Negative Hospital Course (1) Right ureteral calculus: Intractable pain with associated vomiting having failed attempt at conservative outpatient management - persistent evidence of obstruction on imaging with hydronephrosis - Urology input appreciated - to OR later today for stent - IV morphine for pain control - IVF with NSS at 125 ml/hr - Zofran for nausea - NPO until OR - SCDs for DVT prophylaxis pending surgical intervention (2) Hydronephrosis: She is ready for DC per , and f/u outpatient c She is S/P Cystoscopy, Right Retrograde Pyelogram, Right Ureteral Stent Insertion; Right Ureteral Dilation; Right Ureteroscopy; basket stone extraction(Right) - Fer Middleton DO Total Time Total Time Spent Total Time Spent (In Minutes): 40 mins Total Time Includes: Examination of the Patient, Discharge Planning, Medication Reconciliation and Communication With Other Providers Discharge Plan Discharge Items Patient Disposition: Home - Self-Care Reason For Visit: OBSTRUCTING URETERAL STONE Discharge Diagnosis: Ureteral Stone Condition on Discharge: Good Activity: Resume your previous activity Lifting: Gradually increase as tolerated Bathing: No limitations Sexual Activity: When tolerated Exercise/Sports: Gradually increase as tolerated Driving/Machine Use: No limitations Weightbearing: Full weightbearing Non-emergency contact: Primary Care Provider and Urologist Call non-emergency contact if: you have any medication questions Follow-up/Referrals: Fer Middleton DO [Physician] - (Call for first opening) Nancy Linn DO [Primary Care Provider] - Diet: Regular Addtl Attending Provider Instructions: Drink plenty fluids Pending Studies at Discharge: No Stand-Alone Forms: My [employer], Opioid Pain Management, Smoking Cessation Medications and DC Order Prescriptions: New ondansetron HCl [Zofran] 4 mg tablet 4 mg PO Q6H PRN (Reason: nausea and vomiting) Qty: 30 RF: 0 oxycodone-acetaminophen [Percocet] 5-325 mg tablet 1 tab PO Q6H PRN (Reason: pain) Qty: 20 RF: 0 cefuroxime axetil 500 mg tablet 500 mg PO BID 5 Days Qty: 10 RF: 0 Continued tamsulosin [Flomax] 0.4 mg capsule 0.4 mg PO HS RF: 0 Discharge Orders: Discharge Order (Routine); Ordered 01/21/20 Ordered By: Mihai Epstein Admission Data Admit Date/Time: 01/21/20 12:04 Attending Provider: Mihai Epstein Admit Provider: Mihai Epstein Primary Care Provider: Nancy Linn Other Providers: Mihai Epstein
[2020-01-21] MEDS ORDERED: TAMSULOSIN HCL 0.4 MG CAP PO SCH (21:00)
[2020-01-27 13:22] LABS: Component 2 DNR; Source URETERAL STONE
== END 2020-01-21 19:43 | disposition home or self-care (01) | DRG 661 ==
LOC: ED 08:49 → INTOOBSV 12:04 → 3N 12:04